=== PATIENT | female | born 1935 | race Caucasian/White ===

== ENCOUNTER 2016-10-29 11:14 | Inpatient (IN) | payer MEDICARE ==
[~2016-10-29] VITALS: Ht 147.3 cm; Wt 58.1 kg
[2016-10-29 11:15] VITALS: BP 140/69; PULSE 74; RESP 16; TEMP 98.4; O2SAT 98
[2016-10-29 11:44] VITALS: O2SAT 97
[2016-10-29] MEDS ORDERED: SODIUM CHLORIDE 0.9% FLUSH 10 ML FLUSH IV FLUSH PRN ×2 (11:45→13:45)
[2016-10-29] MEDS ORDERED: LEVO50TA4 PO (11:49)
[2016-10-29] MEDS ORDERED: DIOV160T6 PO (11:49)
[2016-10-29] MEDS ORDERED: ROSU10 PO (11:49)
[2016-10-29] MEDS ORDERED: CARV3.12 PO (11:49)
[2016-10-29 12:05] LABS: BASOPHIL # 0.1 TH/MM3 (0-0.2); BASOPHIL % 0.8 % (0.0-2.0); EOSINOPHIL # 0.1 TH/MM3 (0-0.4); EOSINOPHIL % 0.9 % (0.0-4.0); HEMATOCRIT 40.8 % (35.0-46.0); HEMO FLAGS DIFF FINAL; LYMPH % 15.2 % (9.0-44.0); LYMPHOCYTE # 1.2 TH/MM3 (1.0-4.8); MEAN CELL VOLUME 81.2 FL (80.0-100.0); MEAN CORPUSCULAR HEMOGLOBIN 26.6 PG (27.0-34.0); MEAN CORPUSCULAR HGB CONC 32.8 % (32.0-36.0); MONO % 7.5 % (0.0-8.0); NEUT % 75.6 % (16.0-70.0); PLATELET COUNT 572 TH/MM3 (150-450); RED BLOOD COUNT 5.03 MIL/MM3 (4.00-5.30); RED CELL DISTRIBUTION WIDTH 15.2 % (11.6-17.2); WHITE BLOOD COUNT 7.9 TH/MM3 (4.0-11.0)
[2016-10-29] MEDS ORDERED: ONDANSETRON HCL 4 MG/2 ML VIAL IV PUSH ONE (12:15)
[2016-10-29] MEDS ORDERED: PROPOFOL 200 MG/20 ML AMP IV ONE (12:15)
[2016-10-29] MEDS ORDERED: PHENYLEPH/NS 1000 MCG/10 ML SYR IV ONE (12:15)
[2016-10-29] MEDS ORDERED: ePHEDrine/NS 25 MG/5 ML SYR IV ONE (12:15)
[2016-10-29] MEDS ORDERED: NORMOSOL R INJ 2,000 ML IV ONE (12:15)
[2016-10-29] MEDS ORDERED: MORPHINE SULFATE 4 MG/ML INJ IV ONE (12:15)
[2016-10-29 12:17] LABS: APTT (PATIENT) 26.4 SEC (24.3-30.1); INTERNATIONAL NORMALIZED RATIO 1.1 RATIO; PROTHROMBIN TIME - PATIENT 12.7 SEC (9.8-11.6)
[2016-10-29] MEDS ORDERED: ACETAMINOPHEN 1000 MG/100 ML VIAL IV ONE (12:18)
[2016-10-29 12:23] LABS: ALKALINE PHOSPHATASE 97 U/L (45-117); TOTAL BILIRUBIN ADULT 0.3 MG/DL (0.2-1.0)
[2016-10-29 12:29] LABS: ALT (GPT) 15 U/L (10-53); ANION GAP 9 MEQ/L (5-15); AST (GOT) 36 U/L (15-37); BICARBONATE 30.2 MEQ/L (21.0-32.0); BLOOD UREA NITROGEN 6 MG/DL (7-18); CHLORIDE 94 MEQ/L (98-107); GLOMERULAR FILTRATION RATE 59 ML/MIN (>89); POTASSIUM 3.7 MEQ/L (3.5-5.1); SODIUM (NA) 133 MEQ/L (136-145)
[2016-10-29] MEDS ORDERED: metroNIDAZOLE 500 MG INJ 100 ML IV ONE ×2 (13:00→19:30)
[2016-10-29] MEDS ORDERED: SODIUM CHLOR 0.9% 1000 ML INJ 1,000 ML IV SCH ×2 (13:00→13:39)
[2016-10-29] MEDS ORDERED: CIPROFLOXACIN 400 MG PREMIX 200 ML IV ONE (13:00)
[2016-10-29] MEDS ORDERED: RESP: LIDOCAINE HCL 4% PF 5 ML NEB NEB ONE (13:00)
--- NOTE | 2016-10-29 13:38 | PD.CONS ---
cc: Can Brown MD [facility] Service General Surgery Consult Requested By Dr. Moseley Reason for Consult Obstructing colon mass Primary Care Physician Non-Staff History of Present Illness This is an 80 year female with a past medical history of breast cancer, CAD, hypertension and hypothyroidism. The patient started having LLQ pain about 8- 10 days ago and attempted to make any appointment with her PCP. There was a delay in her appointment due to a change in her PCP. She researched online and found that LLQ pain can be a symptom of diverticulitis. She started just drinking clear liquids and noticed a resolution of the LLQ pain. She had an appointment with her PCP and an outpatient CT scan of the abdomen and pelvis was ordered. The CT was completed today at [facility]. The Radiologist sent the patient over to [facility] due to findings of an obstructive colon mass. The patient has never had an EGD or colonoscopy before. A General Surgery consultation has been requested for a surgical evaluation of obstructing colon mass. Review of Systems Constitutional: COMPLAINS OF: Change in appetite, DENIES: Fatigue, Weight loss Endocrine: DENIES: Polydipsia, Polyuria, Polyphagia Eyes: DENIES: Diplopia Ears, nose, mouth, throat: DENIES: Hearing loss Respiratory: DENIES: Cough Cardiovascular: DENIES: Chest pain Gastrointestinal: COMPLAINS OF: Abdominal pain (LLQ ), Diarrhea, DENIES: Nausea , Vomiting Genitourinary: DENIES: Urinary incontinence Musculoskeletal: DENIES: Joint pain Integumentary: DENIES: Abnormal pigmentation Hematologic/lymphatic: DENIES: Bruising Immunologic/allergic: DENIES: Eczema Neurologic: DENIES: Headache, Localized weakness Psychiatric: DENIES: Mood changes, Depression Past Family Social History Past Medical History Breast cancer CAD Hypertension Hypothyroidism Past Surgical History C section x2 CABG (5 vessels) Mastectomy Reported Medications Crestor Coreg Diovan Synthroid Allergies: Coded Allergies: Penicillins (Verified Allergy, Severe, SWELLING, 10/29/16) latex (Verified Allergy, Severe, Rash, 10/29/16) Active Ordered Medications Current Medications Medications (Trade) Dose Ordered Sig/Yue Route Start Time Stop Time Status Last Admin (NS Flush) 2 ml UNSCH PRN IV FLUSH 10/29/16 11:45 Ciprofloxacin/ Dextrose 200 ml @ 200 mls/hr ONCE ONCE IV 10/29/16 13:00 10/29/16 13:59 Metronidazole 100 ml @ 100 mls/hr ONCE ONCE IV 10/29/16 13:00 10/29/16 13:59 10/29/16 13:05 Sodium Chloride 1,000 ml @ 999 mls/hr Q1H1M IV 10/29/16 13:00 10/29/16 14:00 10/29/16 13:06 Family History No known family history of cancer Social History Denies tobacco use Denies ETOH use Denies illicit drug use Lives at home with . Physical Exam Vital Signs Vital Signs Date Time Temp Pulse Resp B/P (MAP) Pulse Ox O2 Delivery O2 Flow Rate FiO2 10/29/16 11:44 97 Room Air 10/29/16 11:15 98.4 74 16 140/69 (92) 98 Physical Exam GENERAL: 80 year old female resting in bed in no acute distress. SKIN: Warm and dry. HEAD: Atraumatic. Normocephalic. EYES: Pupils equal and round. No scleral icterus. No injection or drainage. ENT: No nasal bleeding or discharge. Mucous membranes pink and moist. NECK: Trachea midline. CARDIOVASCULAR: Regular rate and rhythm. RESPIRATORY: No accessory muscle use. Clear to auscultation. Breath sounds equal bilaterally. GASTROINTESTINAL: Abdomen soft, minimally distended; tenderness with deep palpation in LLQ. Well healed midline incision. No palpable hernias. MUSCULOSKELETAL: Extremities without clubbing, cyanosis, or edema. No obvious deformities. NEUROLOGICAL: Awake and alert. No obvious cranial nerve deficits. Motor grossly within normal limits. Five out of 5 muscle strength in the arms and legs. Normal speech. PSYCHIATRIC: Appropriate mood and affect; insight and judgment normal. Laboratory Laboratory Tests Test 10/29/16 11:55 White Blood Count 7.9 Red Blood Count 5.03 Hemoglobin 13.4 Hematocrit 40.8 Mean Corpuscular Volume 81.2 Mean Corpuscular Hemoglobin 26.6 Mean Corpuscular Hemoglobin Concent 32.8 Red Cell Distribution Width 15.2 Platelet Count 572 Mean Platelet Volume 7.6 Neutrophils (%) (Auto) 75.6 Lymphocytes (%) (Auto) 15.2 Monocytes (%) (Auto) 7.5 Eosinophils (%) (Auto) 0.9 Basophils (%) (Auto) 0.8 Neutrophils # (Auto) 6.0 Lymphocytes # (Auto) 1.2 Monocytes # (Auto) 0.6 Eosinophils # (Auto) 0.1 Basophils # (Auto) 0.1 CBC Comment DIFF FINAL Differential Comment Prothrombin Time 12.7 Prothromb Time International Ratio 1.1 Activated Partial Thromboplast Time 26.4 Blood Urea Nitrogen 6 Creatinine 0.92 Random Glucose 116 Total Protein 7.8 Albumin 2.9 Calcium Level 8.9 Alkaline Phosphatase 97 Aspartate Amino Transf (AST/SGOT) 36 Alanine Aminotransferase (ALT/SGPT) 15 Total Bilirubin 0.3 Sodium Level 133 Potassium Level 3.7 Chloride Level 94 Carbon Dioxide Level 30.2 Anion Gap 9 Estimat Glomerular Filtration Rate 59 Lactic Acid Level 1.8 Result Diagram: 10/29/16 1155 10/29/[address] abd/pelvis shows sigmoid region mass with contained perforation Assessment and Plan Assessment and Plan 80 year old female with obstructing sigmoid mass -NPO -OR this evening for exploratory laparotomy, resection of mass and possible colostomy placement with Dr. Brown -Obtain consents -Cardiology consult for surgical clearance -Plan discussed with Mrs. Tee and ([phone]) -Thank you for this consult; We will continue to follow Attending Note - Dr. Brown Abdomen soft, nontender, mass palpable LLQ, possibly metastatic process in liver. Discussed with Dr. Carvajal - he will place ureteral stent to prevent progression of obstructive symptoms and possibly facilitate any chemotherapy needed, in case disease progresses while on therapy Discussed with patient and ; they are aware of risks, benefits, alternatives and consequences. As she has been slowly deteriorating over the past two weeks (according to ) and presents with a perforation, will go to OR for resection/drainage and diversion for definitive treatment. The exam, history, and the medical decision-making described in the above note were completed with the assistance of the mid-level provider. I reviewed and agree with the findings presented. I attest that I had a [id number] encounter with the patient on the same day, and personally performed and documented my assessment and findings in the medical record. Discussed Condition With Dr. Kevin Yanes. and Bridgett Fields Oct 29, 2016 13:38 Can Brown MD Oct 29, 2016 17:25
[2016-10-29] MEDS ORDERED: LACTULOSE SYRUP 20 GM/30 ML CUP PO PRN (13:45)
[2016-10-29] MEDS ORDERED: NALOXONE HCL 0.4 MG/ML AMP IV PRN ×2 (13:45→20:30)
[2016-10-29] MEDS ORDERED: SENNOSIDES 8.6 MG TAB PO PRN (13:45)
[2016-10-29] MEDS ORDERED: BISACODYL 10 MG SUPP RECTAL PRN (13:45)
[2016-10-29] MEDS ORDERED: MAGNESIUM HYDROXIDE SUSP 30 ML CUP PO PRN (13:45)
[2016-10-29] MEDS ORDERED: ONDANSETRON HCL 4 MG/2 ML VIAL IVP PRN (13:45)
[2016-10-29 14:00] VITALS: BP 134/64; PULSE 55; RESP 16; O2SAT 99
--- NOTE | 2016-10-29 14:28 | PD ---
HPI Chief Complaint: Abdominal Pain Time Seen by Provider: 11:42 Travel History International Travel<30 days: No Contact w/Intl Traveler<30days: No Traveled to known affect area: No History of Present Illness HPI This is an 80-year-old female who presents to the emergency department having had 2 weeks of left lower quadrant abdominal pain for which she's been seeing her primary care physician. She says the pain is worse when she walks and improved with rest. Her doctor initially thought she diverticulitis so she was placed on a clear liquid diet and started on Cipro and Flagyl. She had difficulty tolerating the antibiotics. Ultimately the pain resolved 3 days ago. Her doctor had ordered a CT scan which she went for today. The CT demonstrated a sigmoid mass with a contained perforation so she was sent emergently to the emergency department. She denies any fevers, chills, nausea or vomiting. She has had loose stools. PFSH Past Medical History Coronary Artery Disease: Yes Myocardial Infarction: Yes Past Surgical History AICD: Yes (ST [facility]AL[facility]) Section: Yes (X2) Coronary Artery Bypass Graft: Yes Pacemaker: Yes Social History Alcohol Use: Yes (RARE OCCASION) Tobacco Use: No Substance Use: No Allergies-Medications (Allergen,Severity, Reaction): Coded Allergies: Penicillins (Verified Allergy, Severe, SWELLING, 10/29/16) latex (Verified Allergy, Severe, Rash, 10/29/16) Reported Meds & Prescriptions Reported Meds & Active Scripts Active Reported Levothyroxine (Levothyroxine Sodium) 50 Mcg Tab 50 Mcg PO DAILY Diovan (Valsartan) 160 Mg Tab 160 Mg PO DAILY Carvedilol 3.125 Mg Tab 3.125 Mg PO BID Crestor (Rosuvastatin Calcium) 10 Mg Tab 10 Mg PO DAILY Review of Systems Except as stated in HPI: all other systems reviewed are Neg Physical Exam Narrative GENERAL: Thin frail elderly female in no acute distress SKIN: Focused skin assessment warm and dry. HEAD: Atraumatic. Normocephalic. EYES: Pupils equal and round. No injection or drainage. ENT: Dry mucous membranes. NECK: Trachea midline. CARDIOVASCULAR: Regular rate and rhythm. No murmur appreciated. RESPIRATORY: Clear to auscultation. Breath sounds equal bilaterally. GASTROINTESTINAL: Abdomen soft, firm mass in the left lower quadrant with no associated tenderness, rebound or guarding. MUSCULOSKELETAL: No obvious deformities. NEUROLOGICAL: Awake and alert. No obvious cranial nerve deficits. Moving all extremities. PSYCHIATRIC: Appropriate mood and affect; insight and judgment normal. Data Data Last Documented VS Vital Signs Date Time Temp Pulse Resp B/P (MAP) Pulse Ox O2 Delivery O2 Flow Rate FiO2 10/29/16 11:44 97 Room Air 10/29/16 11:15 98.4 74 16 Orders Orders Complete Blood Count With Diff (10/29/16 11:42) Comprehensive Metabolic Panel (10/29/16 11:42) Lactic Acid (10/29/16 11:42) Prothrombin Time / Inr (Pt) (10/29/16 11:42) Act Partial Throm Time (Ptt) (10/29/16 11:42) Iv Access Insert/Monitor (10/29/16 11:42) Ecg Monitoring (10/29/16 11:42) Oximetry (10/29/16 11:42) Sodium Chloride 0.9% Flush (Ns Flush) (10/29/16 11:45) Type And Screen (10/29/16 11:42) Electrocardiogram (10/29/16 11:41) Ciprofloxacin 400 Mg Premix (Cipro 400 M (10/29/16 13:00) Metronidazole 500 Mg Inj (Flagyl 500 Mg (10/29/16 13:00) Sodium Chlor 0.9% 1000 Ml Inj (Ns 1000 M (10/29/16 13:00) Lidocaine Pf 4% Neb (Lidocaine Pf 4% Neb (10/29/16 13:00) Ng Gastric Tube Insert/Monitor (10/29/16 12:59) Consult Mark Nfs (10/29/16 ) Diet Npo (10/29/16 Lunch) Admit Order (Ed Use Only) (10/29/16 13:38) Consult Cardiology (10/29/16 ) Labs Laboratory Tests Test 10/29/16 11:55 White Blood Count 7.9 TH/MM3 Red Blood Count 5.03 MIL/MM3 Hemoglobin 13.4 GM/DL Hematocrit 40.8 % Mean Corpuscular Volume 81.2 FL Mean Corpuscular Hemoglobin 26.6 PG Mean Corpuscular Hemoglobin Concent 32.8 % Red Cell Distribution Width 15.2 % Platelet Count 572 TH/MM3 Mean Platelet Volume 7.6 FL Neutrophils (%) (Auto) 75.6 % Lymphocytes (%) (Auto) 15.2 % Monocytes (%) (Auto) 7.5 % Eosinophils (%) (Auto) 0.9 % Basophils (%) (Auto) 0.8 % Neutrophils # (Auto) 6.0 TH/MM3 Lymphocytes # (Auto) 1.2 TH/MM3 Monocytes # (Auto) 0.6 TH/MM3 Eosinophils # (Auto) 0.1 TH/MM3 Basophils # (Auto) 0.1 TH/MM3 CBC Comment DIFF FINAL Differential Comment Prothrombin Time 12.7 SEC Prothromb Time International Ratio 1.1 RATIO Activated Partial Thromboplast Time 26.4 SEC Blood Urea Nitrogen 6 MG/DL Creatinine 0.92 MG/DL Random Glucose 116 MG/DL Total Protein 7.8 GM/DL Albumin 2.9 GM/DL Calcium Level 8.9 MG/DL Alkaline Phosphatase 97 U/L Aspartate Amino Transf (AST/SGOT) 36 U/L Alanine Aminotransferase (ALT/SGPT) 15 U/L Total Bilirubin 0.3 MG/DL Sodium Level 133 MEQ/L Potassium Level 3.7 MEQ/L Chloride Level 94 MEQ/L Carbon Dioxide Level 30.2 MEQ/L Anion Gap 9 MEQ/L Estimat Glomerular Filtration Rate 59 ML/MIN Lactic Acid Level 1.8 mmol/L MDM Medical Decision Making Medical Screen Exam Complete: Yes Emergency Medical Condition: Yes Interpretation(s) Afebrile, no tachycardia, normotensive No leukocytosis Mild hyponatremia Lactic acid is 1.[address] [place] demonstrates a sigmoid mass in the left lower quadrant with associated contained perforation and no surrounding abscess Differential Diagnosis Diverticulitis, colon cancer, perforated diverticulitis, abscess, sepsis Narrative Course This is an 80-year-old female who presents to the emergency department with left lower quadrant abdominal pain that's been present for [address] demonstrates a sigmoid mass with contained perforation. Here she appears well, is pain-free has normal vital signs. Labs are obtained which are reassuring. I spoke to radiology multiple times regarding imaging findings. I spoke to Dr. Brown who requested an NG tube be placed, the patient be given a dose of antibiotics, and admitted for surgical intervention later today. I spoke to Dr. Pike who will admit the patient to the medical service given the patient's history of coronary artery disease. Physician Communication Physician Communication Discussed with dr. brown, Dr. Mayorga and Dr. Kerns Diagnosis Primary Impression: Colonic mass Additional Impression: Perforation bowel Admitting Information Admitting Physician Requests: Admit Betzy Moseley MD Oct 29, 2016 14:28
--- NOTE | 2016-10-29 15:11 | HHI.PR ---
Objective Vitals Vital Signs Date Time Temp Pulse Resp B/P (MAP) Pulse Ox O2 Delivery O2 Flow Rate FiO2 10/29/16 14:00 55 16 134/64 (87) 99 Room Air 10/29/16 11:44 97 Room Air 10/29/16 11:15 98.4 74 16 140/69 (92) 98 I/O 10/28/16 10/28/16 10/28/16 10/29/16 10/29/16 10/29/16 07:00 15:00 23:00 07:00 15:00 23:00 Intake Total 1100 ml Balance 1100 ml Intake IV Total 1100 ml Result Diagram: 10/29/16 1155 10/29/16 1155 Rosio Kerns MD Oct 29, 2016 15:11
--- NOTE | 2016-10-29 15:22 | HHI.HP ---
[facility]Staff Admission Diagnosis sigmoid mass with perforation Diagnoses: Travel History International Travel<30 Days: No Contact w/Intl Traveler <30 Da: No Traveled to Known Affected Are: No History of Present Illness Patient is an 80-year-old female with past medical history of breast cancer, CAD status post bypass surgery, hyperlipidemia and hyper thyroidism came from [place] upon the request of the radiologist. She tells me that about 2-4 weeks ago, she was experiencing left lower quadrant pain which she rates about a 3 out of 10 whenever she would move around. She states that the pain was "there all the time". Because of this pain she started taking a liquid diet and apparently that helped with the pain. During that time her primary care doctor retired and she was in the process of getting a new primary care doctor. She did see him and he ordered a CT scan. She went to her appointment today to get the CT scan and radiologist referred her to [facility]. Prior to coming here, patient was prescribed antibiotics. She took them for one day however she had nausea due to the antibiotics and stopped taking her medication. She also admits to diarrhea for a couple of days, nonbloody. She states that her primary care doctor did check for blood in her stools and did not find any. She denies any prior history of colonoscopies. Currently she has no pain. She denies any fevers or chills. Currently she is not nauseous. She states she is scheduled for surgery later today and apparently she was told that she would be going to the intensive care unit for monitoring for a day or so. Patient has no other complaints at this time. Review of Systems Except as stated in HPI: all other systems reviewed are Neg Past Family Social History Past Medical History Breast cancer, hyperthyroidism, CAD with bypass surgery, hyperlipidemia Of note, patient tells me that she did not continue her chemotherapy for her breast cancer and stopped it as she could not tolerated it due to extreme weakness. Her oncologist is in [facility]. Past Surgical History 2 C-sections, left mastectomy, bypass surgery Reported Medications Reported Meds & Active Scripts Active Reported Levothyroxine (Levothyroxine Sodium) 50 Mcg Tab 50 Mcg PO DAILY Diovan (Valsartan) 160 Mg Tab 160 Mg PO DAILY Carvedilol 3.125 Mg Tab 3.125 Mg PO BID Crestor (Rosuvastatin Calcium) 10 Mg Tab 10 Mg PO DAILY Allergies: Coded Allergies: Penicillins (Verified Allergy, Severe, SWELLING, 10/29/16) latex (Verified Allergy, Severe, Rash, 10/29/16) Family History Father had heart problems and mother was late stage diabetes Social History Denies any smoking history or illegal drug use. Rarely drinks alcohol Physical Exam Vital Signs Vital Signs Date Time Temp Pulse Resp B/P (MAP) Pulse Ox O2 Delivery O2 Flow Rate FiO2 10/29/16 14:00 55 16 134/64 (87) 99 Room Air 10/29/16 11:44 97 Room Air 10/29/16 11:15 98.4 74 16 140/69 (92) 98 Physical Exam GENERAL: Thin elderly female sitting up in bed with NG tube in place. SKIN: No rashes, ecchymoses or lesions. Cool and dry. HEAD: Atraumatic. Normocephalic. No temporal or scalp tenderness. EYES: Pupils equal round and reactive. Extraocular motions intact. No scleral icterus. No injection or drainage. ENT: Nose without drainage. Throat without erythema, tonsillar hypertrophy or exudate. Uvula midline. Airway patent. NECK: Trachea midline. No JVD or lymphadenopathy. Supple, nontender, no meningeal signs. CARDIOVASCULAR: Regular rate and rhythm without murmurs. RESPIRATORY: Clear to auscultation. Breath sounds equal bilaterally. No wheezes GASTROINTESTINAL: Abdomen soft, mass palpated in the left lower quadrant, nontender. Bowel sounds present. No guarding. MUSCULOSKELETAL: Extremities without edema. No calf tenderness. Negative Homans sign bilaterally. NEUROLOGICAL: Awake and alert. Cranial nerves II through XII intact. Motor and sensory grossly within normal limits. Five out of 5 muscle strength in all muscle groups. Normal speech. Laboratory Laboratory Tests Test 10/29/16 11:55 White Blood Count 7.9 Red Blood Count 5.03 Hemoglobin 13.4 Hematocrit 40.8 Mean Corpuscular Volume 81.2 Mean Corpuscular Hemoglobin 26.6 Mean Corpuscular Hemoglobin Concent 32.8 Red Cell Distribution Width 15.2 Platelet Count 572 Mean Platelet Volume 7.6 Neutrophils (%) (Auto) 75.6 Lymphocytes (%) (Auto) 15.2 Monocytes (%) (Auto) 7.5 Eosinophils (%) (Auto) 0.9 Basophils (%) (Auto) 0.8 Neutrophils # (Auto) 6.0 Lymphocytes # (Auto) 1.2 Monocytes # (Auto) 0.6 Eosinophils # (Auto) 0.1 Basophils # (Auto) 0.1 CBC Comment DIFF FINAL Differential Comment Prothrombin Time 12.7 Prothromb Time International Ratio 1.1 Activated Partial Thromboplast Time 26.4 Blood Urea Nitrogen 6 Creatinine 0.92 Random Glucose 116 Total Protein 7.8 Albumin 2.9 Calcium Level 8.9 Alkaline Phosphatase 97 Aspartate Amino Transf (AST/SGOT) 36 Alanine Aminotransferase (ALT/SGPT) 15 Total Bilirubin 0.3 Sodium Level 133 Potassium Level 3.7 Chloride Level 94 Carbon Dioxide Level 30.2 Anion Gap 9 Estimat Glomerular Filtration Rate 59 Lactic Acid Level 1.8 Result Diagram: 10/29/16 1155 10/29/16 1155 Caprini VTE Risk Assessment Caprini VTE Risk Assessment: Mod/High Risk (score >= 2) Caprini Risk Assessment Model Point Value = 1 Point Value = 2 Point Value = 3 Point Value = 5 Age 41-60 Minor surgery BMI > 25 kg/m2 Swollen legs Varicose veins or History of unexplained or recurrent spontaneous Oral contraceptives or hormone replacement Sepsis (< 1 month) Serious lung disease, including pneumonia (< 1 month) Abnormal pulmonary function Acute myocardial infarction Congestive heart failure (< 1 month) History of inflammatory bowel disease Medical patient at bed rest Age 61-74 Arthroscopic surgery Major open surgery (> 45 min) Laparoscopic surgery (> 45 min) Malignancy Confined to bed (> 72 hours) Immobilizing plaster cast Central venous access Age >= 75 History of VTE Family history of VTE Factor V Leiden Prothrombin [id number] Lupus anticoagulant Anticardiolipin antibodies Elevated serum homocysteine Heparin-induced thrombocytopenia Other congenital or acquired thrombophilia Stroke (< 1 month) Elective arthroplasty Hip, pelvis, or leg fracture Acute spinal cord injury (< 1 month) Prophylaxis Regimen Total Risk Factor Score Risk Level Prophylaxis Regimen 0-1 Low Early ambulation 2 Moderate Order ONE of the following: *Sequential Compression Device (SCD) *Heparin 5000 units SQ BID 3-4 Higher Order ONE of the following medications: *Heparin 5000 units SQ TID *Enoxaparin/Lovenox 40 mg SQ daily (WT < 150 kg, CrCl > 30 mL/min) *Enoxaparin/Lovenox 30 mg SQ daily (WT < 150 kg, CrCl > 10-29 mL/min) *Enoxaparin/Lovenox 30 mg SQ BID (WT < 150 kg, CrCl > 30 mL/min) AND/OR *Sequential Compression Device (SCD) 5 or more Highest Order ONE of the following medications: *Heparin 5000 units SQ TID (Preferred with Epidurals) *Enoxaparin/Lovenox 40 mg SQ daily (WT < 150 kg, CrCl > 30 mL/min) *Enoxaparin/Lovenox 30 mg SQ daily (WT < 150 kg, CrCl > 10-29 mL/min) *Enoxaparin/Lovenox 30 mg SQ BID (WT < 150 kg, CrCl > 30 mL/min) AND *Sequential Compression Device (SCD) Assessment and Plan Assessment and Plan Sigmoid mass w contained perforation noted on outpatient CT scan: CT abdomen and pelvis showed an ill-defined mass in the sigmoid region with contained perforation. Questionable metastatic disease to liver. Mild hydronephrosis. General surgery has been consulted. Plan is to take patient to the OR. Patient tells me that she is active, plays golf on a regular basis, has no shortness of breath with ambulation. She is able to go up and down the stairs with no difficulties. EKG reviewed and shows T wave inversions in lead II, III, V5 and V6 but no ST elevation or depression. Pt denies any chest pains. Pain control , Rehabilitation, antibiotics and DVT prophylaxis per general surgery. Consider consulting medical oncology pending findings in surgery. NG tube in place. Monitor pt for any worsening abdominal pain. Mild hyponatremia: monitor for now. Breast cancer: Status post left mastectomy. Patient admits that she did not finish her course of chemotherapy as she could not tolerate it. Oncologist is in [facility]. hyperthyroidism: Resume home medication CAD with bypass surgery: Resume home medication hyperlipidemia: Resume home medication DVT prophylaxis: Held as patient is scheduled for surgery this afternoon. Nothing by mouth. Code Status Full code Discussed Condition With Patient and ER physician Rosio Kerns MD Oct 29, 2016 15:22
[2016-10-29 16:00] VITALS: BP 145/74; PULSE 70; RESP 18; O2SAT 98
[2016-10-29] MEDS ORDERED: LIDOCAINE HCL 2% JELLY 5 ML SYRINGE ONE (16:52)
--- NOTE | 2016-10-29 17:02 | PD.CONS ---
HPI Service Urology Consult Requested By Primary Care Physician Non-Staff Diagnosis: History of Present Illness 80-year-old female presents with findings of a sigmoid mass on CT scan scheduled undergo exploratory laparotomy with colon resection by Dr. Brown today. Patient was also found to have left-sided hydronephrosis and urology was consult the place left ureteral stent. She presently denies any flank pain or nausea and vomiting. She denies any gross hematuria or history of stones. Review of Systems ROS Limitations: Clinical Condition Constitutional: DENIES: Diaphoretic episodes Endocrine: DENIES: Abnorml menstrual pattern Eyes: DENIES: Blurred vision Ears, nose, mouth, throat: DENIES: Tinnitus Respiratory: DENIES: Apneas Cardiovascular: DENIES: Chest pain Gastrointestinal: COMPLAINS OF: Abdominal pain Genitourinary: DENIES: Abnormal vaginal bleeding Musculoskeletal: DENIES: Joint pain Integumentary: DENIES: Abnormal pigmentation Hematologic/lymphatic: DENIES: Bruising Immunologic/allergic: DENIES: Eczema Neurologic: DENIES: Abnormal gait Psychiatric: DENIES: Anxiety Past Family Social History Past Medical History CAD Hyperlipidema Breast cancer Past Surgical History CABG Left mastectomy 2 Allergies: Coded Allergies: Penicillins (Verified Allergy, Severe, SWELLING, 10/29/16) latex (Verified Allergy, Severe, Rash, 10/29/16) Family History Diabetes and heart disease Social History Denies drug use, smoking, social EtOH usage is noted Physical Exam Vital Signs Date Time Temp Pulse Resp B/P (MAP) Pulse Ox O2 Delivery O2 Flow Rate FiO2 10/29/16 16:00 70 18 145/74 (97) 98 10/29/16 15:45 10/29/16 14:00 55 16 134/64 (87) 99 Room Air 10/29/16 11:44 97 Room Air 10/29/16 11:15 98.4 74 16 140/69 (92) 98 Physical Exam GENERAL: This is a well-nourished, well-developed patient, in no apparent distress. SKIN: No rashes, ecchymoses or lesions. Cool and dry. HEAD: Atraumatic. Normocephalic. No temporal or scalp tenderness. EYES: Pupils equal round and reactive. Extraocular motions intact. No scleral icterus. No injection or drainage. ENT: Nose without bleeding, purulent drainage or septal hematoma. Throat without erythema, tonsillar hypertrophy or exudate. Uvula midline. Airway patent. NECK: Trachea midline. No JVD or lymphadenopathy. Supple, nontender, no meningeal signs. CARDIOVASCULAR: Regular rate and rhythm without murmurs, gallops, or rubs. RESPIRATORY: Clear to auscultation. Breath sounds equal bilaterally. No wheezes , rales, or rhonchi. GASTROINTESTINAL: Abdomen soft, non-tender, nondistended. No hepato-splenomegaly , or palpable masses. No guarding. GENITOURINARY: Normal female external genitalia MUSCULOSKELETAL: Extremities without clubbing, cyanosis, or edema. No joint tenderness, effusion, or edema noted. No calf tenderness. Negative Homans sign bilaterally. NEUROLOGICAL: Awake and alert. Cranial nerves II through XII intact. Motor and sensory grossly within normal limits. Five out of 5 muscle strength in all muscle groups. Normal speech. Laboratory Tests Test 10/29/16 11:55 White Blood Count 7.9 Red Blood Count 5.03 Hemoglobin 13.4 Hematocrit 40.8 Mean Corpuscular Volume 81.2 Mean Corpuscular Hemoglobin 26.6 Mean Corpuscular Hemoglobin Concent 32.8 Red Cell Distribution Width 15.2 Platelet Count 572 Mean Platelet Volume 7.6 Neutrophils (%) (Auto) 75.6 Lymphocytes (%) (Auto) 15.2 Monocytes (%) (Auto) 7.5 Eosinophils (%) (Auto) 0.9 Basophils (%) (Auto) 0.8 Neutrophils # (Auto) 6.0 Lymphocytes # (Auto) 1.2 Monocytes # (Auto) 0.6 Eosinophils # (Auto) 0.1 Basophils # (Auto) 0.1 CBC Comment DIFF FINAL Differential Comment Prothrombin Time 12.7 Prothromb Time International Ratio 1.1 Activated Partial Thromboplast Time 26.4 Blood Urea Nitrogen 6 Creatinine 0.92 Random Glucose 116 Total Protein 7.8 Albumin 2.9 Calcium Level 8.9 Alkaline Phosphatase 97 Aspartate Amino Transf (AST/SGOT) 36 Alanine Aminotransferase (ALT/SGPT) 15 Total Bilirubin 0.3 Sodium Level 133 Potassium Level 3.7 Chloride Level 94 Carbon Dioxide Level 30.2 Anion Gap 9 Estimat Glomerular Filtration Rate 59 Lactic Acid Level 1.8 Result Diagram: 10/29/16 1155 10/29/16 1155 Assessment and Plan Assessment and Plan 80-year-old female with left-sided colon mass scheduled undergo resection today. We'll schedule cystoscopy with left ureteral stent insertion to allow for decompression of hydronephrosis. After the surgery was completed, she'll follow-up in the office to undergo stent removal. Derek Carvajal DO Oct 29, 2016 17:02
[2016-10-29] MEDS ORDERED: FAMOTIDINE 20 MG/2 ML VIAL ONE (17:06)
--- NOTE | 2016-10-29 17:49 | PD.OP ---
Operative Report Date of Surgery: Oct 29, 2016 Preoperative Diagnosis: With hydronephrosis with sigmoid colon mass Postoperative Diagnosis: Same Procedure: Cystoscopy with left retrograde study left double-J stent insertion Anesthesia: MERCEDEZA Surgeon: Derek Carvajal Plant Hr Manager(s): None Resident Surgeon: None Operation and Findings: 80-year-old female presented today for CT scan demonstrating a left descending colon/sigmoid colon mass with left hydronephrosis. Request for made for left ureteral stent as she was scheduled undergo support to her laparotomy today by Dr. Brown. Risk and benefits were discussed preoperatively with the patient she was willing to proceed. Patient is brought to operating room identified by myself as Anai Tee. She is placed in dorsal lithotomy position, prepped and draped in usual sterile fashion, received preprocedure antibiotics and general endotracheal tube anesthesia was administered. Weight 2 Kuwaiti the scope was inserted in the bladder delgadillo cystoscopy did not reveal any abnormalities. Left ureteral orifice was identified and a 5 Kuwaiti opening catheter was inserted into the left ureteral orifice and retrograde study was performed. Marked hydronephrosis with hydroureter was identified on the left side. A 0.3 sensor wire was then passed up into the collecting system of the kidney and the open ended catheter was then removed. A 20 cm 6 Kuwaiti left double-J stent was placed in good position and a 16 Kuwaiti Mena catheter was inserted in the bladder. She tolerated the procedure well. She'll need a follow-up in the office as an outpatient and have her stent removed at that time. Derek Carvajal DO Oct 29, 2016 17:49
[2016-10-29] MEDS ORDERED: SUGAMMADEX SODIUM 200 MG/2 ML VIAL IV PUSH ONE ×2 (19:29)
[2016-10-29] MEDS ORDERED: DO NOT ADM ANY ANTICOAGULANT DRUGS PRN (19:55)
[2016-10-29 20:00] VITALS: BP 106/55; PULSE 62; RESP 18; TEMP 99.5; O2SAT 95
[2016-10-29] MEDS: LACTATED RINGER'S 1000 ML INJ 1,000 ML IV SCH (20:24)
--- NOTE | 2016-10-29 20:24 | HHI.PR ---
cc: Can Brown MD Immediate Post Op Note Procedure Date: Oct 29, 2016 Pre Op Diagnosis: descending colon mass with perforation Post Op Diagnosis: Same Liver metastases Surgeon: Can Brown Surgical Assistant Certified(s): Tova Cedillo CSA Procedure: Placement ureteral stent (Dr. Carvajal) Exp Laparotomy Mobilization splenic flexure of colon Resection distal transverse and descending colon Saran-cut liver biopsy x 2 End colostomy Findings: Tumor involving distal transverse and descending colon At least three hepatic lesions extremely suspicious for metastatic disease Complications: None Specimen(s) removed: Distal transverse and descending colon to pathology [place] liver specimens medial segment left lobe liver to pathology Estimated blood loss: 250 ml Anesthesia: General Drains: AN IVF (2500 ml) Patient to: PACU Patient Condition: Good Date/Time of Procedure: SEE SURGICAL CARE RECORD Can Brown MD Oct 29, 2016 20:24
[2016-10-29] MEDS ORDERED: MORPHINE SULFATE 4 MG/ML INJ ONE ×3 (20:29→20:54)
[2016-10-29] MEDS ORDERED: MORPHINE SULFATE 30 MG/30 ML PCA IV SCH (20:30)
[2016-10-29] MEDS ORDERED: ONDANSETRON HCL 4 MG/2 ML VIAL IV PRN (20:30)
[2016-10-29] MEDS ORDERED: diphenhydrAMINE HCL 50 MG/ML VIAL IVP PRN (20:30)
[2016-10-29] MEDS ORDERED: Post-op Orders (for Pharmacy) MISC XX ONE (20:30)
[2016-10-29] MEDS ORDERED: SODIUM CHLORIDE 0.9% FLUSH 5 ML FLUSH IVF PRN (20:30)
[2016-10-29] MEDS: DOCUSATE SODIUM 50 MG/SENNA 8.6 MG TAB PO SCH (21:00)
[2016-10-29] MEDS ORDERED: SODIUM CHLORIDE 0.9% FLUSH 10 ML FLUSH IV FLUSH SCH (21:00)
[2016-10-29] MEDS: SODIUM CHLORIDE 0.9% FLUSH 5 ML FLUSH IVF SCH (21:00)
[2016-10-29] MEDS: metroNIDAZOLE 500 MG INJ 100 ML IV SCH (21:00)
[2016-10-29] MEDS ORDERED: HYDROmorphone HCL PF 1 MG/ML VIAL ONE (21:15)
[2016-10-29 22:00] VITALS: BP 102/58; PULSE 76; RESP 14; TEMP 96.3; O2SAT 98
[2016-10-29] MEDS: CIPROFLOXACIN 400 MG PREMIX 200 ML IV SCH (22:00)
[2016-10-29 23:03] LABS: AUTOMATED NEUTROPHIL # 18.2 TH/MM3 (1.8-7.7); BASOPHIL # 0.1 TH/MM3 (0-0.2); BASOPHIL % 0.3 % (0.0-2.0); HEMATOCRIT 38.8 % (35.0-46.0); HEMO FLAGS DIFF FINAL; LYMPH % 4.6 % (9.0-44.0); LYMPHOCYTE # 0.9 TH/MM3 (1.0-4.8); MEAN CELL VOLUME 82.1 FL (80.0-100.0); MEAN CORPUSCULAR HEMOGLOBIN 26.8 PG (27.0-34.0); MEAN CORPUSCULAR HGB CONC 32.6 % (32.0-36.0); MONO % 3.7 % (0.0-8.0); NEUT % 91.4 % (16.0-70.0); PLATELET COUNT 491 TH/MM3 (150-450); RED BLOOD COUNT 4.72 MIL/MM3 (4.00-5.30); RED CELL DISTRIBUTION WIDTH 15.2 % (11.6-17.2); WHITE BLOOD COUNT 19.9 TH/MM3 (4.0-11.0)
[2016-10-29 23:37] LABS: BICARBONATE 25.3 MEQ/L (21.0-32.0)
[2016-10-30] VITALS (12 sets, daily range): BP systolic 91–139; BP diastolic 54–63; PULSE 63–89; RESP 11–23; TEMP 96–97.9; O2SAT 95–99
[2016-10-30] MEDS: metroNIDAZOLE 500 MG INJ 100 ML IV SCH ×3 (04:35→20:40)
[2016-10-30 05:42] LABS: AUTOMATED NEUTROPHIL # 21.8 TH/MM3 (1.8-7.7); BASOPHIL % 0.2 % (0.0-2.0); HEMATOCRIT 38.3 % (35.0-46.0); HEMO FLAGS DIFF FINAL; LYMPH % 2.8 % (9.0-44.0); LYMPHOCYTE # 0.7 TH/MM3 (1.0-4.8); MEAN CELL VOLUME 82.3 FL (80.0-100.0); MEAN CORPUSCULAR HEMOGLOBIN 25.9 PG (27.0-34.0); MEAN CORPUSCULAR HGB CONC 31.4 % (32.0-36.0); MONO % 2.7 % (0.0-8.0); NEUT % 94.3 % (16.0-70.0); PLATELET COUNT 494 TH/MM3 (150-450); RED BLOOD COUNT 4.66 MIL/MM3 (4.00-5.30); RED CELL DISTRIBUTION WIDTH 15.6 % (11.6-17.2); WHITE BLOOD COUNT 23.2 TH/MM3 (4.0-11.0)
[2016-10-30 06:07] LABS: BICARBONATE 24.4 MEQ/L (21.0-32.0); POTASSIUM 4.1 MEQ/L (3.5-5.1)
[2016-10-30] MEDS: PCA - TOTAL MG MORPHINE DELIVERED PER SHIFT SCH ×3 (06:28→20:41)
[2016-10-30] MEDS: LACTATED RINGER'S 1000 ML INJ 1,000 ML IV SCH ×2 (06:51→16:24)
[2016-10-30] MEDS ORDERED: SODIUM CHLORID 0.9% 500 ML INJ 500 ML IV ONE (09:00)
[2016-10-30] MEDS: DOCUSATE SODIUM 50 MG/SENNA 8.6 MG TAB PO SCH ×2 (09:37→20:38)
[2016-10-30] MEDS: SODIUM CHLORIDE 0.9% FLUSH 5 ML FLUSH IVF SCH ×2 (09:37→20:42)
--- NOTE | 2016-10-30 10:47 | MB ---
cc: EDWIN VELAZQUEZ M.D. DATE OF CONSULTATION: 10/29/2016 REASON FOR CONSULTATION Preoperative cardiac clearance. HISTORY OF PRESENT ILLNESS The patient is a very pleasant 80-year-old white female with a history of coronary artery disease, hyperlipidemia, hyperthyroidism, left breast cancer who, presented to the hospital with a left lower quadrant abdominal pain. Further workup has suggested a possible malignancy in the sigmoid region with contained perforation and possible metastatic disease to the liver. She is to undergo abdominal surgery today. The patient states she plays golf twice a week and does yard work at least three days a week without difficulty. She denies any recent chest pain, shortness of breath, dizziness, syncope, near-syncope, palpitations, pedal edema, paroxysmal nocturnal dyspnea. PAST MEDICAL HISTORY 1. Coronary artery disease status post five-vessel bypass surgery February 2011 in [place], [place]. 2. Presumably an ischemic cardiomyopathy, status post AICD implant April 2011. 3. Left breast cancer status post left mastectomy 2011. The patient states her lymph node dissection showed no nodes positive. 4. Hyperlipidemia. 5. Hyperthyroidism. MEDICATIONS Her cardiac medications at home: 1. Valsartan 160 mg daily. 2. Carvedilol 3.125 mg b.i.d. 3. Crestor or 10 mg q.h.s. ALLERGIES PENICILLIN. LATEX. FAMILY HISTORY Noncontributory. SOCIAL HISTORY The patient denies any history of alcohol or tobacco abuse. REVIEW OF SYSTEMS Review of systems as in the history of present illness otherwise negative or noncontributory. She also denies headache, melena, bright red blood per rectum, cough, fevers. PHYSICAL EXAMINATION VITAL SIGNS: On physical examination, blood pressure 134/64 with a pulse of 55, respirations 16. GENERAL: In general, she is a well-developed thin white female in no acute distress. HEAD, EYES, EARS, NOSE, AND THROAT: On HEENT examination jugular venous pressure is normal. Carotid pulses are 2+ bilaterally and without bruits. CHEST: Examination of the chest reveals clear lung watkins. CARDIAC: On cardiac examination she has a regular rhythm and rate without S3-S4 or murmur. ABDOMEN: On abdominal examination aggressive palpation was not pursued. Bowel sounds are present. There is no definite hepatosplenomegaly. EXTREMITIES: Examination of the extremities reveals no clubbing, cyanosis or edema. LABORATORY DATA Laboratory data includes normal CBC, potassium 3.7, BUN 6, creatinine 0.92. EKG. Shows sinus rhythm, inferior infarct age undetermined, poor R-wave progression, consider anterior infarct age undetermined, inferior and lateral T-wave abnormality consider ischemia. IMPRESSION Overall stable cardiac status in this 80-year-old white female with a history of coronary disease status post five-vessel bypass surgery 2011, presumably an ischemic cardiomyopathy status post AICD implant 2011, left breast cancer, hyperlipidemia. I have been asked to see the patient for cardiac clearance prior to abdominal surgery for possible sigmoid colon cancer and placement of a colostomy. The patient does moderate level activity, almost on a daily basis without evidence for angina or recent congestive heart failure. The extent of her ischemic cardiomyopathy is not entirely clear. The patient does not know any recent ejection fraction values. At this point, I do not see any definite preoperative indices which would significantly increase her perioperative cardiovascular morbidity or mortality. RECOMMENDATIONS 1. Resume her cardiac medications as soon as she is able to take oral medications after surgery. 2. The patient is cleared for surgery from a cardiac standpoint. Edwin Velazquez MD [facility]/DT /3:54 PM /10:20 AM
--- NOTE | 2016-10-30 10:50 | HHI.PR ---
Subjective Subjective Notes Resting in bed Tired but pain controlled Objective Vitals/I&O Vital Signs Date Time Temp Pulse Resp B/P (MAP) Pulse Ox O2 Delivery O2 Flow Rate FiO2 10/30/16 08:14 96 Nasal Cannula 1.00 10/30/16 08:00 63 10/30/16 06:28 17 10/30/16 04:00 96.7 114/61 (78) Labs Laboratory Tests Test 10/29/16 11:55 10/29/16 22:27 10/29/16 22:54 10/30/16 05:07 White Blood Count 7.9 19.9 23.2 Red Blood Count 5.03 4.72 4.66 Hemoglobin 13.4 12.7 12.0 Hematocrit 40.8 38.8 38.3 Mean Corpuscular Volume 81.2 82.1 82.3 Mean Corpuscular Hemoglobin 26.6 26.8 25.9 Mean Corpuscular Hemoglobin Concent 32.8 32.6 31.4 Red Cell Distribution Width 15.2 15.2 15.6 Platelet Count 572 491 494 Mean Platelet Volume 7.6 7.6 7.5 Neutrophils (%) (Auto) 75.6 91.4 94.3 Lymphocytes (%) (Auto) 15.2 4.6 2.8 Monocytes (%) (Auto) 7.5 3.7 2.7 Eosinophils (%) (Auto) 0.9 0.0 0.0 Basophils (%) (Auto) 0.8 0.3 0.2 Neutrophils # (Auto) 6.0 18.2 21.8 Lymphocytes # (Auto) 1.2 0.9 0.7 Monocytes # (Auto) 0.6 0.7 0.6 Eosinophils # (Auto) 0.1 0.0 0.0 Basophils # (Auto) 0.1 0.1 0.0 CBC Comment DIFF FINAL DIFF FINAL DIFF FINAL Differential Comment Prothrombin Time 12.7 Prothromb Time International Ratio 1.1 Activated Partial Thromboplast Time 26.4 Blood Urea Nitrogen 6 6 5 Creatinine 0.92 0.66 0.82 Random Glucose 116 132 129 Total Protein 7.8 Albumin 2.9 Calcium Level 8.9 7.7 7.5 Alkaline Phosphatase 97 Aspartate Amino Transf (AST/SGOT) 36 Alanine Aminotransferase (ALT/SGPT) 15 Total Bilirubin 0.3 Sodium Level 133 139 137 Potassium Level 3.7 4.0 4.1 Chloride Level 94 104 104 Carbon Dioxide Level 30.2 25.3 24.4 Anion Gap 9 10 9 Estimat Glomerular Filtration Rate 59 86 67 Lactic Acid Level 1.8 Nasal Screen MRSA (PCR) MRSA NOT DETECTED Date/Time Source Procedure Growth Status 10/29/16 18:08 Fluid Peritoneal Fluid Gram Stain - Final Resulted 10/29/16 18:08 Fluid Peritoneal Fluid Body Fluid Culture Pending Resulted Radiology Outpatient CT abd/pelvis shows sigmoid region mass with contained perforation Cardiovascular: Regular Lungs: Clear Abdomen: Other (midline incision with c/d/i dressing in place; AN with SS drainge; colostomy stoma pink without any output ) Extremities: No edema A/P Assessment and Plan 80 year old female with obstructing colon mass; POD1 Placement ureteral stent ( Dr. Carvajal); Exp Laparotomy; Mobilization splenic flexure of colon; Resection distal transverse and descending colon ; Saran-cut liver biopsy x 2; End colostomy -NGT to LIWS; okay for a few ice chips and sips of water -IVF -Await pathology -Continue AN care -Continue Mena -PT eval and treat -Consult to Colostomy Nurse -Labs in AM -Transfer to 7N Attending Note - Dr. Brown Patient C/O NG tube; states otherwise no pain Urine output adequate overnight AVSS Dressings dry and intact Transfer to floor Stable The exam, history, and the medical decision-making described in the above note were completed with the assistance of the mid-level provider. I reviewed and agree with the findings presented. I attest that I had a [id number] encounter with the patient on the same day, and personally performed and documented my assessment and findings in the medical record. Bridgett Espinosa Oct 30, 2016 10:50 Can Brown MD Oct 30, 2016 17:14
--- NOTE | 2016-10-30 16:37 | HHI.PR ---
Subjective Remarks Pt denies any pain at this time. States that the NG tube is bothering her. No nausea or vomiting. Discussed w RN, no concerns at this time. Mena w urine dark color and GS aware. Per RN, pt had stent placed as well by urology Objective Vitals Vital Signs Date Time Temp Pulse Resp B/P (MAP) Pulse Ox O2 Delivery O2 Flow Rate FiO2 10/30/16 14:00 63 10/30/16 14:00 22 10/30/16 12:00 97.9 72 16 133/63 (86) 95 10/30/16 10:00 74 10/30/16 08:14 96 Nasal Cannula 1.00 10/30/16 08:00 63 10/30/16 08:00 97.8 68 20 108/54 (72) 99 10/30/16 07:00 98 Nasal Cannula 2.00 10/30/16 06:28 17 10/30/16 06:00 69 10/30/16 04:00 74 10/30/16 04:00 96.7 74 11 114/61 (78) 98 10/30/16 02:00 66 10/30/16 00:00 96.0 66 12 91/55 (67) 97 10/30/16 00:00 66 10/29/16 22:00 96.3 76 14 102/58 (73) 98 10/29/16 22:00 76 10/29/16 21:45 76 12 114/65 (81) 99 Nasal Cannula 4 10/29/16 21:45 14 10/29/16 21:44 14 10/29/16 21:41 14 10/29/16 21:30 74 14 115/69 (84) 99 Nasal Cannula 4 10/29/16 21:15 66 14 121/68 (85) 99 Nasal Cannula 4 10/29/16 21:00 67 14 127/70 (89) 99 Nasal Cannula 4 10/29/16 20:45 67 12 124/63 (83) 99 Simple Mask 8 10/29/16 20:30 68 14 129/66 (87) 100 Simple Mask 8 10/29/16 20:15 66 18 125/61 (82) 100 Simple Mask 8 10/29/16 20:00 97.6 64 22 111/56 (74) 100 Simple Mask 8 I/O 9/12/17 10/29/16 10/29/16 10/30/16 10/30/16 10/30/16 07:00 15:00 23:00 07:00 15:00 23:00 Intake Total 1100 ml 2900 ml 1724 ml 600 ml Output Total 1070 ml 410 ml Balance 1100 ml 1830 ml 1314 ml 600 ml Intake IV Total 1100 ml 400 ml 1724 ml 600 ml Other 2500 ml Output Urine Total 775 ml 260 ml Stool Total 0 ml Gastric Drainage Total 0 ml Drainage Total 45 ml 150 ml Estimated Blood Loss 250 ml Result Diagram: 10/30/16 0507 10/30/16 0507 Objective Remarks GENERAL: Thin elderly female sitting up in bed with NG tube in place. EYES: Extraocular motions intact. ENT: Nose with NG tube. Airway patent. NECK: Trachea midline. CARDIOVASCULAR: Regular rate and rhythm without murmurs. RESPIRATORY: Clear to auscultation. Breath sounds equal bilaterally. No wheezes GASTROINTESTINAL: Abdomen soft, hypoactive Bowel sounds, minimal discomfort, ostomy tube noted, no stool present, AN drain present w serosanguinous fluid. dressing in place. MUSCULOSKELETAL: Extremities without edema. NEUROLOGICAL: Awake and alert. Cranial nerves II through XII intact. Motor and sensory grossly within normal limits. Normal speech. A/P Assessment and Plan Sigmoid mass w contained perforation noted on outpatient CT scan: CT abdomen and pelvis showed an ill-defined mass in the sigmoid region with contained perforation. Questionable metastatic disease to liver. Mild hydronephrosis. General surgery following. s/pPlacement ureteral stent (Dr. Carvajal), Exp Laparotomy, Mobilization splenic flexure of colon, Resection distal transverse and descending colon, Saran-cut liver biopsy x 2 End colostomy POD 1. pain mgt/rehab/dvt proph/ on cipro/flagyl per GS. Mild hyponatremia: monitor for now. Breast cancer: Status post left mastectomy. Patient admits that she did not finish her course of chemotherapy as she could not tolerate it. Oncologist is in [facility]. hyperthyroidism: on home medication CAD with bypass surgery: on home medication hyperlipidemia: on home medication DVT prophylaxis: lovenox Discharge Planning d/c pending further work-up and clinical improvement. awaiting pathology report Rosio Kerns MD Oct 30, 2016 16:36
[2016-10-30] MEDS: CIPROFLOXACIN 400 MG PREMIX 200 ML IV SCH (20:41)
[2016-10-30] MEDS: ENOXAPARIN SODIUM 30 MG/0.3 ML SYRINGE SQ SCH (20:42)
--- NOTE | 2016-10-30 21:57 | EKG ---
Date Performed: 10/29/2016 Time Performed: 11:41:13 PTAGE: 80 years EKG: Sinus rhythm WITH OCCASIONAL VENTRICULAR PREMATURE COMPLEXES WITH OCCASIONAL SUPRAVENTRICULAR PREMATURE COMPLEXES INFERIOR MYOCARDIAL INFARCTION ANTEROLATERAL MYOCARDIAL INFARCTION ABNORMAL ECG NO PREVIOUS TRACING DOCTOR: Brenda Mccord Interpretating Date/Time 10/30/2016 21:56:40
[2016-10-31] VITALS (8 sets, daily range): BP systolic 104–137; BP diastolic 54–79; PULSE 77–94; RESP 16–20; TEMP 97.3–98.1; O2SAT 96–99
[2016-10-31] MEDS: LACTATED RINGER'S 1000 ML INJ 1,000 ML IV SCH ×3 (02:24→21:16)
[2016-10-31] MEDS: PCA - TOTAL MG MORPHINE DELIVERED PER SHIFT SCH ×2 (04:38→13:45)
[2016-10-31] MEDS: metroNIDAZOLE 500 MG INJ 100 ML IV SCH ×3 (05:08→21:10)
--- NOTE | 2016-10-31 07:59 | MP ---
cc: CAN BROWN M.D., ABDUL J. M.D. DATE OF SURGERY 10/29/2016 PROCEDURE 1. Exploratory laparotomy 2. Mobilization splenic flexure of the colon 3. Resection of distal transverse and descending colon 4. Saran-Cut liver biopsy x2 from the medial segment of the left lobe of the liver. 5. End colostomy PREOPERATIVE DIAGNOSIS Perforated sigmoid colon mass. POSTOPERATIVE DIAGNOSIS Perforated sigmoid colon mass with likely neoplasm with metastatic disease to the liver. ANESTHESIA General endotracheal SURGEON Can Brown MD ESTIMATED BLOOD LOSS 250 mL FLUIDS 2500 mL crystalloid, 750 mL urine COMPLICATIONS None DRAINS AN x1 SPECIMEN 1. Distal transverse and descending colon to pathology. 2. Saran-Cut liver biopsies x2 to pathology. PROCEDURE IN DETAIL The patient was taken to the operating room and underwent a ureteral stent placement by Dr. Derek Carvajal. Please see his dictation for this portion of the procedure. This was performed as the patient had a large mass in the left colon abutting the ureter and causing a mild amount of hydroureter. When Dr. Carvajal was finished with his procedure, the patient was taken out of lithotomy and placed in the supine position. A Mena catheter was in place already. The abdomen was prepped and draped. Time-out was taken confirming the correct patient, site, and procedure to be performed. An incision was made in the patient's previous incision. Dissection was carried down to the fascia and the fascia was then divided with the anterior abdomen elevated. The peritoneal cavity was entered uneventfully. Careful exploration of the abdomen revealed a small amount of bloody ascites near the liver. Lesions were able to be palpated in the liver in the medial segment of the left lobe of liver as well as two lesions laterally on the dome of the liver in the right lobe. Attention was then turned to the mass which was located in the descending colon. A portion of the transverse colon was also involved with tumor. The splenic flexure of the colon was uninvolved, but proximal and distal to this, tumor was firmly adherent. The tumor was adhered to the lateral sidewall. Some of the anterior abdominal wall and posteriorly to the retroperitoneum. The transverse colon was selected just past the middle colic vessels and divided with a HAIR stapler. The splenic flexure was completely mobilized and blood supply ligated with successive clamping and ligation. The omentum was mobilized upwards and any containing tumor or around the tumor was sacrificed with the tumor itself. The sigmoid colon was then divided with the HAIR stapler and then the colon was mobilized from the lateral sidewall medially. Care was taken to palpate the stent in the ureter and the colon and tumor was peeled off in both blunt dissection, use of electrocautery, and sharp dissection. The tumor was completely excised with successive clamping and ligation as well utilizing silk sutures. The entire tumor was removed, marked proximally and distally with silk sutures and passed off the table. The abdomen was reexamined. The lateral sidewall was made hemostatic with electrocautery. No bleeding was noted posteriorly. The ureter was able to be palpated and was seen to be intact. The medial segment of the left lobe of the liver was able to be palpated and the tumor was easiest to be biopsied from this location. Two cores of liver were taken with a Saran-Cut needle and submitted for specimen analysis. These two sites were made hemostatic with electrocautery. When this was completed, the abdomen was irrigated and a colostomy was made in the left upper quadrant. This was brought out via separate stab incision. After opening the fascia in a cruciate fashion. The muscles were split with the Army-Camak retractors. The posterior fascia was divided in a cruciate fashion as well. A Cari clamp was used to bring the transverse colon through the defect and then with care being taken to not twist the colon. The colon was fixed to the fascia at two points with 3-0 Vicryl suture. At this point, the abdomen was reinspected and found to be clean and dry. A #19 Channel drain was brought out via the right lower quadrant stab incision and affixed to the skin with a 2-0 nylon suture. The drain was placed in the pelvis and run along the left gutter. Before closing the abdomen, confirmation of the nasogastric tube in the stomach was made manually by the surgeon. The abdomen was then closed with a running looped #1 PDS suture. The skin was closed with gabriel. This was toweled off and the colostomy then matured with 3-0 Vicryl suture after opening the staple line and removing it. A 57 mm colostomy appliance was applied and the midline was dressed with a Primapore dressing. A 4x4 was placed around the drain site. Sponge, needle and instrument counts were reported to be correct. The patient was extubated and taken back to the recovery room in stable condition. MD INEZ Jones/DJDalton /8:33 PM /7:39 AM DENI
[2016-10-31] MEDS: SODIUM CHLORIDE 0.9% FLUSH 5 ML FLUSH IVF SCH ×2 (08:05→21:16)
[2016-10-31] MEDS: DOCUSATE SODIUM 50 MG/SENNA 8.6 MG TAB PO SCH ×2 (08:14→21:14)
[2016-10-31 08:16] LABS: AUTOMATED NEUTROPHIL # 12.7 TH/MM3 (1.8-7.7); BASOPHIL % 0.2 % (0.0-2.0); EOSINOPHIL % 0.1 % (0.0-4.0); HEMATOCRIT 33.6 % (35.0-46.0); HEMO FLAGS DIFF FINAL; LYMPH % 7.5 % (9.0-44.0); LYMPHOCYTE # 1.1 TH/MM3 (1.0-4.8); MEAN CELL VOLUME 82.1 FL (80.0-100.0); MEAN CORPUSCULAR HEMOGLOBIN 26.4 PG (27.0-34.0); MEAN CORPUSCULAR HGB CONC 32.2 % (32.0-36.0); MONO % 5.6 % (0.0-8.0); NEUT % 86.6 % (16.0-70.0); PLATELET COUNT 449 TH/MM3 (150-450); RED BLOOD COUNT 4.09 MIL/MM3 (4.00-5.30); RED CELL DISTRIBUTION WIDTH 15.8 % (11.6-17.2); WHITE BLOOD COUNT 14.7 TH/MM3 (4.0-11.0)
[2016-10-31 09:13] LABS: BICARBONATE 27.5 MEQ/L (21.0-32.0); MAGNESIUM 1.9 MG/DL (1.5-2.5)
[2016-10-31] MEDS ORDERED: SODIUM CHLORID 0.9% 500 ML INJ 500 ML IV ONE (10:15)
--- NOTE | 2016-10-31 12:18 | PD.WCN.NOT ---
Wound Consult Description: Consult placed for Ostomy Management Communicated with: Patient Patients FRANCIS Espinosa Recommendation: Read booklet left on bedside table for introduction into What to expect after Colostomy Surgery Will follow up with patient on Friday10/31/16 to answer questions and provide Colostomy teaching Additional Information: Patient seen on for Ostomy Management. [facility] kit provided with information booklet given. To follow up with patient for further teaching Friday11/01/16 Ostomy Date of Surgery: Oct 29, 2016 April Valenzuela Oct 31, 2016 12:18
--- NOTE | 2016-10-31 15:20 | HHI.PR ---
Subjective Remarks Pt seen earlier, doing well. pain controlled. no nausea or vomiting. Tolerating sips of clears. NG tube has been removed and she is pleased.no concerns at this time. Objective Vitals Vital Signs Date Time Temp Pulse Resp B/P (MAP) Pulse Ox O2 Delivery O2 Flow Rate FiO2 10/31/16 13:45 18 10/31/16 12:00 97.9 77 16 136/64 (88) 97 10/31/16 08:58 97 21 10/31/16 08:00 97.3 86 18 137/69 (91) 97 10/31/16 04:39 18 10/31/16 04:38 18 10/31/16 00:00 98.1 94 20 104/54 (71) 96 10/30/16 20:41 18 10/30/16 20:00 96.8 89 20 128/61 (83) 97 10/30/16 18:00 71 10/30/16 16:00 97.6 78 23 139/63 (88) 96 I/O 10/30/16 10/30/16 10/30/16 10/31/16 10/31/16 10/31/16 07:00 15:00 23:00 07:00 15:00 23:00 Intake Total 1724 ml 600 ml 1688 ml 530 ml 600 ml Output Total 410 ml 450 ml 405 ml 80 ml Balance 1314 ml 600 ml 1238 ml 125 ml 520 ml Intake Oral 420 ml 0 ml IV Total 1724 ml 600 ml 1268 ml 530 ml 600 ml Output Urine Total 260 ml 350 ml 375 ml Stool Total 0 ml 10 ml Gastric Drainage Total 0 ml Drainage Total 150 ml 90 ml 30 ml 80 ml Result Diagram: 10/31/1629 10/31/16628 Objective Remarks GENERAL: Thin elderly female sitting up in recliner EYES: Extraocular motions intact. ENT: Airway patent. NECK: Trachea midline. CARDIOVASCULAR: Regular rate and rhythm without murmurs. RESPIRATORY: Clear to auscultation. Breath sounds equal bilaterally. No wheezes GASTROINTESTINAL: Abdomen soft, hypoactive Bowel sounds, minimal discomfort, ostomy tube noted, no stool present, AN drain present w serosanguinous fluid. dressing in place. MUSCULOSKELETAL: Extremities without edema. NEUROLOGICAL: Awake and alert. Cranial nerves II through XII intact. Motor and sensory grossly within normal limits. Normal speech. A/P Assessment and Plan Sigmoid mass w contained perforation noted on outpatient CT scan: CT abdomen and pelvis showed an ill-defined mass in the sigmoid region with contained perforation. Questionable metastatic disease to liver. Mild hydronephrosis. General surgery following. s/pPlacement ureteral stent (Dr. Carvajal), Exp Laparotomy, Mobilization splenic flexure of colon, Resection distal transverse and descending colon, Saran-cut liver biopsy x 2 End colostomy POD 2. pain mgt/rehab/dvt proph/ on cipro/flagyl per GS. WBC trending down. continue to monitor. Pathology report pending. cultures growing mixed Anaerobes Mild hyponatremia: monitor for now. Breast cancer: Status post left mastectomy. Patient admits that she did not finish her course of chemotherapy as she could not tolerate it. Oncologist is in [facility]. hyperthyroidism: on home medication CAD with bypass surgery: on home medication hyperlipidemia: on home medication DVT prophylaxis: lovenox Discharge Planning d/c pending further work-up and clinical improvement. awaiting pathology report Rosio Kerns MD Oct 31, 2016 15:20
--- NOTE | 2016-10-31 15:56 | HHI.PR ---
Subjective Subjective Notes Up to chair Pain controlled NGT causing discomfort Objective Vitals/I&O Vital Signs Date Time Temp Pulse Resp B/P (MAP) Pulse Ox O2 Delivery O2 Flow Rate FiO2 10/31/16 14:00 18 10/31/16 12:00 97.9 77 136/64 (88) 97 10/31/16 08:58 21 10/30/16 08:14 Nasal Cannula 1.00 Labs Laboratory Tests Test 10/31/16 06:29 White Blood Count 14.7 Red Blood Count 4.09 Hemoglobin 10.8 Hematocrit 33.6 Mean Corpuscular Volume 82.1 Mean Corpuscular Hemoglobin 26.4 Mean Corpuscular Hemoglobin Concent 32.2 Red Cell Distribution Width 15.8 Platelet Count 449 Mean Platelet Volume 8.0 Neutrophils (%) (Auto) 86.6 Lymphocytes (%) (Auto) 7.5 Monocytes (%) (Auto) 5.6 Eosinophils (%) (Auto) 0.1 Basophils (%) (Auto) 0.2 Neutrophils # (Auto) 12.7 Lymphocytes # (Auto) 1.1 Monocytes # (Auto) 0.8 Eosinophils # (Auto) 0.0 Basophils # (Auto) 0.0 CBC Comment DIFF FINAL Differential Comment Blood Urea Nitrogen 5 Creatinine 0.77 Random Glucose 117 Calcium Level 8.0 Magnesium Level 1.9 Sodium Level 136 Potassium Level 4.0 Chloride Level 102 Carbon Dioxide Level 27.5 Anion Gap 7 Estimat Glomerular Filtration Rate 72 Date/Time Source Procedure Growth Status 10/29/16 18:08 Fluid Peritoneal Fluid Gram Stain - Final Complete 10/29/16 18:08 Body Fluid Culture - Final Mixed Anaerobes Complete Radiology Outpatient CT abd/pelvis shows sigmoid region mass with contained perforation Cardiovascular: Regular Lungs: Clear Abdomen: Other (midline incision ---dressing changed---incision c/d/i with gabriel; AN with SS fluid; Colsotomy stoma pink with no output in collection bag ) Extremities: No edema Narrative Exam Mena in place with dark yellow urine A/P Assessment and Plan 80 year old female with obstructing colon mass; POD2 Placement ureteral stent ( Dr. Carvajal); Exp Laparotomy; Mobilization splenic flexure of colon; Resection distal transverse and descending colon ; Saran-cut liver biopsy x 2; End colostomy -DC NGT -Clear liquids -IVF -Give 500 cc bolus -Await pathology -Continue AN care -Continue Mena -PT eval and treat -Consult to Colostomy Nurse Attending Note - Dr. Brown Patient reports minimal discomfort in incision when she coughs. Colostomy pink with serous drainage in bag. AN drainage serosanguinous. 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 I reviewed and agree with the findings presented. I attest that I had a [id number] encounter with the patient on the same day, and personally performed and documented my assessment and findings in the medical record. Bridgett Espinosa Oct 31, 2016 15:56 Can Brown MD Oct 31, 2016 16:40
--- NOTE | 2016-10-31 16:39 | HHI.FF ---
Face to Face Verification Diagnosis: (1) Colonic mass Home Health Nursing Order: Wound care and dressing changes Instructions: Colostomy care and teaching Midline incision: Dry dressing change daily and PRN I have seen patient Esthela Tee on 10/31/16. My clinical findings support the need for the requested home health care services because: Limited ability to care for self High risk of falls I certify that my clinical findings support that this patient is homebound because: Post-op weakness Bridgett Espinosa [employer]POS[employer]AY[employer] WORK[employer] Oct 31, 2016 16:39
[2016-10-31] MEDS ORDERED: ACETAMINOPHEN/HYDROcodone 325 MG/5 MG TAB PO PRN ×2 (16:45)
[2016-10-31] MEDS: ENOXAPARIN SODIUM 30 MG/0.3 ML SYRINGE SQ SCH (17:17)
[2016-10-31] MEDS: CIPROFLOXACIN 400 MG PREMIX 200 ML IV SCH (21:10)
[2016-11-01] VITALS: BP 131/75; PULSE 89; RESP 17; TEMP 96; O2SAT 94
[2016-11-01] MEDS: metroNIDAZOLE 500 MG INJ 100 ML IV SCH ×3 (05:25→21:16)
[2016-11-01 08:00] VITALS: BP 136/70; PULSE 87; RESP 18; TEMP 97; O2SAT 92
[2016-11-01] MEDS: DOCUSATE SODIUM 50 MG/SENNA 8.6 MG TAB PO SCH ×2 (09:00→21:17)
[2016-11-01] MEDS: SODIUM CHLORIDE 0.9% FLUSH 5 ML FLUSH IVF SCH ×2 (09:00→21:00)
[2016-11-01] MEDS: LACTATED RINGER'S 1000 ML INJ 1,000 ML IV SCH ×2 (09:46→21:16)
--- NOTE | 2016-11-01 10:56 | HHI.PR ---
Subjective Subjective Notes Up to chair Has been ambulating in room Objective Vitals/I&O Vital Signs Date Time Temp Pulse Resp B/P (MAP) Pulse Ox O2 Delivery O2 Flow Rate FiO2 11/01/16 08:00 97.0 87 18 136/70 (92) 92 10/31/16 08:58 21 10/30/16 08:14 Nasal Cannula 1.00 Labs Date/Time Source Procedure Growth Status 10/29/16 18:08 Fluid Peritoneal Fluid Gram Stain - Final Complete 10/29/16 18:08 Body Fluid Culture - Final Mixed Anaerobes Complete Radiology Outpatient CT abd/pelvis shows sigmoid region mass with contained perforation Cardiovascular: Regular Lungs: Clear Abdomen: Other (midline incision with gabriel; c/d/i; AN with SS thin fluid; colostomy in place with pink stoma--- serous fluid in collection bag ) Extremities: No edema Narrative Exam Mena removed A/P Assessment and Plan 80 year old female with obstructing colon mass; POD3 Placement ureteral stent ( Dr. Carvajal); Exp Laparotomy; Mobilization splenic flexure of colon; Resection distal transverse and descending colon ; Saran-cut liver biopsy x 2; End colostomy -Mena out; + post removal void -Continue clear liquids -IVF -Consult to Medical Oncology-- Dr. Dempsey -Continue AN care -PT eval and treat -Consult to Colostomy Nurse -CM consult for [facility] --Face to Face complete Attending Note - Dr. Brown Wound dressing dry; AN output sanguinous (130 ml) Colostomy viable, swollen/edematous, but with minimal serous fluid in bag. Patient knows how to care for colostomy, as had an ileostomy previously Pathology reviewed with patient, , and daughter and copy provided to them. Dr. Dempsey saw patient today as well; he will see in office in two weeks. Discussed possible port placement once she is discharged. Follow up my office next week after discharge home for staple removal. Will need to go home on Flagyl for anaerobes growing in culture The exam, history, and the medical decision-making described in the above note were completed with the assistance of the mid-level provider. I reviewed and agree with the findings presented. I attest that I had a [id number] encounter with the patient on the same day, and personally performed and documented my assessment and findings in the medical record. Bridgett Espinosa Nov 01, 2016 10:56 Can Brown MD Nov 01, 2016 16:50
[2016-11-01 12:00] VITALS: BP 144/67; PULSE 88; RESP 16; TEMP 96.3; O2SAT 97
--- NOTE | 2016-11-01 15:23 | PD.WCN.NOT ---
Wound Consult Description: Consult placed for Ostomy Management Communicated with: Patient Patient at bedside Recommendation: Patient seen on for Ostomy assessment and teaching. Ostomy Type: Colostomy Surgeon: Can Brown MD Date of Surgery: Oct 29, 2016 Complete: [facility] Educated patient on: How to release air from pouch using flange When to change appliance How to change appliance Peristomal skin care Patient will be sent home with 4 appliances in size 2 3/4" for stoma size 2" Additional information Patient seen on with Dr Brown and FRANCIS Espinosa with at bedside. Stoma is noted to left quadrant and measuring 2". Stoma is round, pink , moist, moderately protruding with lumen noted in center. Stoma is functioning with minimal liquid effluent noted in pouch. Appliances ordered from [facility] for patient to go home with at discharge. Barrier is intact with low pressure adaptor in place. Patient asked if the bag could face down. Patient was shown how to remove pouch from low pressure adaptor to change the position of the pouch. Patient had no other questions at this time. Supplies to be picked up by inspector automatic typewriter today and taken to patient for more teaching and answering of questions. April Valenzuela [facility] Nov 01, 2016 15:23
--- NOTE | 2016-11-01 15:24 | HHI.PR ---
Subjective Remarks Pt has no pain, denies any nausea or vomiting. comfortable. Objective Vitals Vital Signs Date Time Temp Pulse Resp B/P (MAP) Pulse Ox O2 Delivery O2 Flow Rate FiO2 11/01/16 12:00 96.3 88 16 144/67 (92) 97 11/01/16 08:00 97.0 87 18 136/70 (92) 92 11/01/16 00:00 96.0 89 17 131/75 (93) 94 10/31/16 20:00 97.3 85 17 131/64 (86) 98 10/31/16 16:00 97.8 79 16 128/79 (95) 99 I/O 10/31/16 10/31/16 10/31/16 11/01/16 11/01/16 11/01/16 07:00 15:00 23:00 07:00 15:00 23:00 Intake Total 530 ml 600 ml 2080 ml 866 ml Output Total 405 ml 80 ml 1185 ml 1060 ml Balance 125 ml 520 ml 895 ml -194 ml Intake Oral 0 ml 480 ml 240 ml IV Total 530 ml 600 ml 1600 ml 626 ml Output Urine Total 375 ml 1000 ml 950 ml Drainage Total 30 ml 80 ml 185 ml 110 ml # Bowel Movements 0 Result Diagram: 10/31/1662810/31/16628 Objective Remarks GENERAL: Thin elderly female sitting up in recliner EYES: Extraocular motions intact. ENT: Airway patent. NECK: Trachea midline. CARDIOVASCULAR: Regular rate and rhythm without murmurs. RESPIRATORY: Clear to auscultation. Breath sounds equal bilaterally. No wheezes GASTROINTESTINAL: Abdomen soft, hypoactive Bowel sounds, minimal discomfort, ostomy bag noted, no stool present, dressing in place. MUSCULOSKELETAL: Extremities without edema. NEUROLOGICAL: Awake and alert. Cranial nerves II through XII intact. Motor and sensory grossly within normal limits. Normal speech. A/P Assessment and Plan Sigmoid mass w contained perforation noted on outpatient CT scan: CT abdomen and pelvis showed an ill-defined mass in the sigmoid region with contained perforation. Questionable metastatic disease to liver. Mild hydronephrosis. General surgery following. s/pPlacement ureteral stent (Dr. Carvajal), Exp Laparotomy, Mobilization splenic flexure of colon, Resection distal transverse and descending colon, Saran-cut liver biopsy x 2 End colostomy POD 3. pain mgt/rehab/dvt proph/ on cipro/flagyl per GS. WBC trending down. continue to monitor. Pathology report pending. cultures growing mixed Anaerobes. on clear liquid diet. Mild hyponatremia: monitor for now. Breast cancer: Status post left mastectomy. Patient admits that she did not finish her course of chemotherapy as she could not tolerate it. Oncologist is in [facility]. hyperthyroidism: on home medication CAD with bypass surgery: on home medication hyperlipidemia: on home medication DVT prophylaxis: lovenox Discharge Planning d/c pending further work-up and clinical improvement. awaiting pathology report med/onc has been consulted by surgical team. Rosio Kerns MD Nov 01, 2016 15:24
[2016-11-01 16:00] VITALS: BP 148/60; PULSE 88; RESP 16; TEMP 97.1; O2SAT 97
[2016-11-01] MEDS: ENOXAPARIN SODIUM 30 MG/0.3 ML SYRINGE SQ SCH ×2 (17:22→21:17)
--- NOTE | 2016-11-01 18:14 | MB ---
cc: LILIANA BROWN M.D., ABDUL J. M.D. DATE OF CONSULTATION 11/01/16 REASON FOR CONSULTATION Consult requested by Dr. Brown for evaluation of metastatic colon cancer. HISTORY OF PRESENT ILLNESS Esthela is a pleasant 80-year-old female. She is known to me as her is one of my patients. The patient has a history of left breast cancer which was diagnosed in 2011 when she used to live in [facility]. She says that all the lymph nodes were negative. She had left mastectomy and she did not require any chemotherapy or hormone therapy. Those records are not available. She also has a history of coronary artery disease, underwent coronary artery bypass surgery. She has a history of hypercholesterolemia, hypertension and hypothyroidism. The patient has been having pain in the left side of the abdomen for the last [id number] weeks. She went to see her new primary physician as the previous one had retired. A CAT scan of the abdomen and pelvis was ordered. She went to [place] to have that test done. The radiologist found that the patient has a sigmoid colon mass with the perforation. The patient was sent to the emergency room at [place]. The patient was evaluated by Dr. Brown, general surgeon. The patient underwent surgery on October 29, 3 days ago. She had exploratory laparotomy, mobilization of the splenic flexure of the colon, resection of the distal transverse and descending colon and Saran-Cut liver biopsy x2 from the medial segment of the left lobe of the liver and end colostomy. The pathology report came back positive for colon cancer. I have been asked to see the patient for further evaluation. The patient never had any colonoscopy. She stated nobody had recommended her to have a colonoscopy. She denies any blood in the stool. She denies any weight loss or anorexia. Her main symptoms were abdominal pain, mostly on the left side. She denies any cough, shortness of breath. The patient is now on liquid diet which she has been tolerating it well. She has a colostomy bag but she has no bowel movement as yet. She has been complaining of abdominal discomfort due to the recent surgery. The rest of the review of systems is negative. PAST MEDICAL HISTORY Left breast cancer diagnosed in 2011, coronary artery disease, hypercholesterolemia, hypertension, hypothyroidism. PAST SURGICAL HISTORY x2, coronary artery bypass surgery, left modified radical mastectomy 2011 in [facility]. PAST SURGERIES ALLERGIES TO PENICILLIN AND LATEX. MEDICATIONS 1. Swink. 2. Lovenox. 3. Cipro. 4. Amberly-Colace. 5. Flagyl. 6. Zofran. 7. Benadryl. 8. Senokot. 9. Lactulose. FAMILY HISTORY Parents from old age. The patient has no sisters. She had one brother who during the [place] war. The patient had one son who from congestive heart failure. The patient has one daughter who is alive and well. SOCIAL HISTORY The patient is , lives with her . The patient does not smoke cigarettes, does not drink alcohol. 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 PHYSICAL EXAMINATION GENERAL: This is a well-developed, well-nourished white female in no apparent distress. VITAL SIGNS: Temperature 96.3, heart rate is 88, blood pressure 144/67, O2 saturation 97% on room air. HEENT: PERRLA, EOMI, anicteric. No oral lesions are noted. No lymphadenopathy noted. LUNGS: Lungs are clear. No wheezing, rhonchi or rales. HEART: Heart is regular rate and rhythm. ABDOMEN: Abdomen is soft. Decreased bowel sounds. Colostomy bag noted which is empty. EXTREMITIES: No pedal edema. NEUROLOGY: Awake, alert, oriented times three. SKIN: No significant lesions are noted. ASSESSMENT 1. 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 2. History of left breast cancer status post left modified radical mastectomy in 2011. 3. Coronary artery disease status post coronary artery bypass surgery. 4. Hypercholesterolemia. 5. Hypertension. 6. Hypothyroidism. PLAN I have reviewed her available records and I had an extensive discussion with the patient regarding the diagnosis, treatment and prognosis of colon cancer. I discussed the pathology report which indicates that she has invasive moderately differentiated adenocarcinoma of the transverse colon. The omentum also shows invasive moderately differentiated adenocarcinoma. The liver biopsy is also confirmed to have moderately differentiated adenocarcinoma. Macroscopic tumor perforation was present. The tumor is moderately differentiated, invasive through the muscularis propria into the pericolorectal tissue. Surgical margins are negative. Lymphovascular invasion was present. There is no perineural invasion noted. There is no tumor deposits noted. All 10 lymph nodes are negative for metastatic disease. She has a T3 N0 M1, stage IV colon cancer. We did discuss briefly about the staging of colon cancer. We discussed that she would need chemotherapy. I did not go into detail about the chemotherapy at this time as I believe it is premature. I advised her that she needs to come to the office in 2 weeks after she is discharged so that we can discuss further treatment plan for stage IV colon cancer. I will order the CEA tumor marker. Her liver enzymes are normal. She was not anemic when she came into the hospital. But now her hemoglobin has dropped to 10.8. I will check the iron studies as well. The patient denies any blood in the stool. Her is not present at this time. But I will speak to him when he will come into the office in 2 weeks with the patient. Please give her an appointment to see me in 2 weeks once she is discharged to home. Thank you for asking my opinion. Dar Dempsey MD /MAAURI /1:44 PM /5:56 PM DENI
[2016-11-01 20:00] VITALS: BP 133/76; PULSE 92; RESP 16; TEMP 96.4; O2SAT 95
[2016-11-01] MEDS: CIPROFLOXACIN 400 MG PREMIX 200 ML IV SCH (21:16)
[2016-11-01 22:47] LABS: TRANSFERRIN IRON PROFILE 148 MG/DL (200-360)
[2016-11-01 22:50] LABS: FERRITIN 105 NG/ML (8-252)
[2016-11-02] VITALS: BP 140/71; PULSE 101; RESP 16; TEMP 95.5; O2SAT 92
[2016-11-02] MEDS: metroNIDAZOLE 500 MG INJ 100 ML IV SCH ×3 (04:18→22:48)
[2016-11-02 06:02] LABS: AUTOMATED NEUTROPHIL # 12.4 TH/MM3 (1.8-7.7); BASOPHIL % 0.3 % (0.0-2.0); EOSINOPHIL % 0.1 % (0.0-4.0); HEMATOCRIT 36.6 % (35.0-46.0); HEMO FLAGS DIFF FINAL; LYMPH % 6.4 % (9.0-44.0); LYMPHOCYTE # 0.9 TH/MM3 (1.0-4.8); MEAN CELL VOLUME 83.2 FL (80.0-100.0); MEAN CORPUSCULAR HEMOGLOBIN 26.8 PG (27.0-34.0); MEAN CORPUSCULAR HGB CONC 32.3 % (32.0-36.0); MONO % 5.4 % (0.0-8.0); NEUT % 87.8 % (16.0-70.0); PLATELET COUNT 425 TH/MM3 (150-450); RED CELL DISTRIBUTION WIDTH 16.3 % (11.6-17.2); WHITE BLOOD COUNT 14.1 TH/MM3 (4.0-11.0)
[2016-11-02 06:23] LABS: MAGNESIUM 1.7 MG/DL (1.5-2.5); POTASSIUM 3.8 MEQ/L (3.5-5.1)
[2016-11-02 08:00] VITALS: BP 137/77; PULSE 108; RESP 16; TEMP 97.7; O2SAT 92
[2016-11-02] MEDS: SODIUM CHLORIDE 0.9% FLUSH 5 ML FLUSH IVF SCH ×2 (09:00→21:00)
[2016-11-02] MEDS: DOCUSATE SODIUM 50 MG/SENNA 8.6 MG TAB PO SCH ×2 (09:03→21:00)
[2016-11-02] MEDS ORDERED: FUROSEMIDE 20 MG TAB PO ONE (09:15)
--- NOTE | 2016-11-02 10:03 | HHI.PR ---
Subjective Subjective Notes Resting in bed Feels more edematous than yesterday Objective Vitals/I&O Vital Signs Date Time Temp Pulse Resp B/P (MAP) Pulse Ox O2 Delivery O2 Flow Rate FiO2 11/02/16 08:00 97.7 108 16 137/77 (97) 92 10/31/16 08:58 21 10/30/16 08:14 Nasal Cannula 1.00 Labs Laboratory Tests Test 11/01/16 21:20 11/02/16 04:58 Iron Level 41 Total Iron Binding Capacity 207 Percent Iron Saturation 19.8 Ferritin 105 Carcinoembryonic Antigen 20.1 White Blood Count 14.1 Red Blood Count 4.40 Hemoglobin 11.8 Hematocrit 36.6 Mean Corpuscular Volume 83.2 Mean Corpuscular Hemoglobin 26.8 Mean Corpuscular Hemoglobin Concent 32.3 Red Cell Distribution Width 16.3 Platelet Count 425 Mean Platelet Volume 8.0 Neutrophils (%) (Auto) 87.8 Lymphocytes (%) (Auto) 6.4 Monocytes (%) (Auto) 5.4 Eosinophils (%) (Auto) 0.1 Basophils (%) (Auto) 0.3 Neutrophils # (Auto) 12.4 Lymphocytes # (Auto) 0.9 Monocytes # (Auto) 0.8 Eosinophils # (Auto) 0.0 Basophils # (Auto) 0.0 CBC Comment DIFF FINAL Differential Comment Blood Urea Nitrogen 3 Creatinine 0.75 Random Glucose 120 Calcium Level 7.8 Magnesium Level 1.7 Sodium Level 137 Potassium Level 3.8 Chloride Level 105 Carbon Dioxide Level 25.0 Anion Gap 7 Estimat Glomerular Filtration Rate 74 Date/Time Source Procedure Growth Status 10/29/16 18:08 Fluid Peritoneal Fluid Gram Stain - Final Complete 10/29/16 18:08 Body Fluid Culture - Final Mixed Anaerobes Complete Radiology Outpatient CT abd/pelvis shows sigmoid region mass with contained perforation Cardiovascular: Regular Lungs: Clear Abdomen: Other (midline incision with minimal drainage; AN with SS fluid; colostomy --stoma pink without any output ) Extremities: Other (mild BLE edema ) A/P Assessment and Plan 80 year old female with obstructing colon mass; POD4 Placement ureteral stent ( Dr. Carvajal); Exp Laparotomy; Mobilization splenic flexure of colon; Resection distal transverse and descending colon ; Saran-cut liver biopsy x 2; End colostomy -DC fluids; 1 time does of PO Lasix -Continue clear liquids until bowel function returns -Dr. Dempsey following -Continue AN care -PT eval and treat---OOB -Consult to Colostomy Nurse -CM consult for HHC --Face to Face complete I CERTIFY AND ATTEST THAT I PERSONALLY EXAMINED THE PATIENT IN THEIR ROOM. MS CASTREJON DOCUMENTED OUR VISIT AND ENTERED ORDERS IN THE EMR UNDER MY DIRECT SUPERVISION. I REVIEWED THE CARE PLAN WITH THE NURSING STAFF, THE PATIENT AND THEIR FAMILY. CLYDE SCOTT MD [facility] Bridgett CastrejonP Nov 02, 2016 10:03 Clyde Scott MD Nov 05, 2016 13:25
[2016-11-02 12:00] VITALS: BP 127/68; PULSE 96; RESP 16; TEMP 97.5; O2SAT 97
[2016-11-02] MEDS ORDERED: LEVOTHYROXINE SODIUM 50 MCG TAB PO ONE (13:30)
--- NOTE | 2016-11-02 13:43 | HHI.PR ---
Subjective Remarks Pt has no pain. Mentions that her legs got tight last night and felt SOB after activity this morning. She denies to me any prior hx of CHF however states that she was told that her heart was a "little weak" but she doesn't know how much. Just got the lasix ordered by sx. Currently she has no SOB, no CP/n/v. family at bedside. Objective Vitals Vital Signs Date Time Temp Pulse Resp B/P (MAP) Pulse Ox O2 Delivery O2 Flow Rate FiO2 11/02/16 12:00 97.5 96 16 127/68 (87) 97 11/02/16 08:00 97.7 108 16 137/77 (97) 92 11/02/16 00:00 95.5 101 16 140/71 (94) 92 11/01/16 20:00 96.4 92 16 133/76 (95) 95 11/01/16 16:00 97.1 88 16 148/60 (89) 97 I/O 11/01/16 11/01/16 11/01/16 11/02/16 11/02/16 11/02/16 07:00 15:00 23:00 07:00 15:00 23:00 Intake Total 866 ml 100 ml 1660 ml 493 ml Output Total 1060 ml 950 ml 170 ml Balance -194 ml 100 ml 710 ml 323 ml Intake Oral 240 ml 960 ml IV Total 626 ml 100 ml 700 ml 493 ml Output Urine Total 950 ml 850 ml Drainage Total 110 ml 100 ml 170 ml # Bowel Movements 0 Result Diagram: 11/02/16 0458 11/02/16 0458 Objective Remarks GENERAL: Thin elderly female sitting up in recliner EYES: Extraocular motions intact. ENT: Airway patent. NECK: Trachea midline. CARDIOVASCULAR: Regular rate and rhythm without murmurs. RESPIRATORY: Clear to auscultation. Breath sounds equal bilaterally. No wheezes or crackles auscultated GASTROINTESTINAL: Abdomen soft, hypoactive Bowel sounds, minimal discomfort, ostomy bag noted, no stool present, dressing in place. MUSCULOSKELETAL: Extremities 1+ pitting edema in lower extremities below the knees. NEUROLOGICAL: Awake and alert. Motor and sensory grossly within normal limits. Normal speech. A/P Assessment and Plan Sigmoid mass w contained perforation noted on outpatient CT scan: CT abdomen and pelvis showed an ill-defined mass in the sigmoid region with contained perforation. Questionable metastatic disease to liver. Mild hydronephrosis. General surgery following. s/pPlacement ureteral stent (Dr. Carvajal), Exp Laparotomy, Mobilization splenic flexure of colon, Resection distal transverse and descending colon, Saran-cut liver biopsy x 2 End colostomy POD 4. pain mgt/rehab/dvt proph/ on cipro/flagyl per GS. WBC trending down. continue to monitor. 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 Oncology evaluated the patient. Per Dr. Dempsey, she has stage IV colon cancer. He recommends pt f/u w him in the office in 2 weeks and she will require chemotherapy. cultures growing mixed Anaerobes. diet advanced to full liquids per sx. Mild hyponatremia: resolved Hx of ischemic cardiomyopathy however EF unknown. SOB w ambulation. She doesn't know her EF. Hold all IV fluids. Agree w dose of lasix. Check ECHO. monitor lower extremity edema. May need another dose of lasix in AM. Pt has no SOB at this time. Breast cancer: Status post left mastectomy. Patient admits that she did not finish her course of chemotherapy as she could not tolerate it. Oncologist is in [facility]. hyperthyroidism: on home medication CAD with bypass surgery: on home medication hyperlipidemia: on home medication DVT prophylaxis: lovenox Discharge Planning diet has been advanced to full liquid by Gen sx. oncology evaluated the patient and she has stage IV colon cancer, f/u w onc team in 2 weeks in clinic f/u ECHO results. Monitor lower ext edema awaiting clearance from sx. Rosio Kerns MD Nov 02, 2016 13:43
[2016-11-02 16:00] VITALS: BP 132/75; PULSE 89; RESP 18; TEMP 96.8; O2SAT 98
[2016-11-02 20:00] VITALS: BP 113/74; PULSE 95; RESP 16; TEMP 96.2; O2SAT 96
[2016-11-02] MEDS: CIPROFLOXACIN 400 MG PREMIX 200 ML IV SCH (22:47)
[2016-11-02] MEDS: CARVEDILOL 3.125 MG TAB PO SCH (22:48)
[2016-11-03] VITALS: BP 118/71; PULSE 86; RESP 20; TEMP 95.6; O2SAT 93
[2016-11-03] MEDS: metroNIDAZOLE 500 MG INJ 100 ML IV SCH ×2 (04:29→12:46)
[2016-11-03] MEDS ORDERED: LEVOTHYROXINE SODIUM 50 MCG TAB PO SCH (06:00)
[2016-11-03 07:48] LABS: BICARBONATE 25.5 MEQ/L (21.0-32.0); MAGNESIUM 1.6 MG/DL (1.5-2.5); POTASSIUM 3.7 MEQ/L (3.5-5.1)
[2016-11-03 08:00] VITALS: BP 124/69; PULSE 99; RESP 16; TEMP 95.9; O2SAT 94
[2016-11-03] MEDS: CARVEDILOL 3.125 MG TAB PO SCH (08:32)
[2016-11-03] MEDS: DOCUSATE SODIUM 50 MG/SENNA 8.6 MG TAB PO SCH (08:32)
[2016-11-03] MEDS: SODIUM CHLORIDE 0.9% FLUSH 5 ML FLUSH IVF SCH (08:33)
[2016-11-03] MEDS ORDERED: VALSARTAN 160 MG TAB PO SCH (09:00)
[2016-11-03] MEDS ORDERED: ATORVASTATIN 20 MG TAB PO SCH (09:00)
--- NOTE | 2016-11-03 09:41 | HHI.PR ---
Subjective Subjective Notes doing better today, tolerating liquids Objective Vitals/I&O Vital Signs Date Time Temp Pulse Resp B/P (MAP) Pulse Ox O2 Delivery O2 Flow Rate FiO2 11/03/16 08:00 95.9 99 16 124/69 (87) 94 10/31/16 08:58 21 10/30/16 08:14 Nasal Cannula 1.00 Labs Laboratory Tests Test 11/03/16 06:32 Blood Urea Nitrogen 5 Creatinine 0.73 Random Glucose 127 Calcium Level 7.5 Magnesium Level 1.6 Sodium Level 138 Potassium Level 3.7 Chloride Level 105 Carbon Dioxide Level 25.5 Anion Gap 8 Estimat Glomerular Filtration Rate 77 Date/Time Source Procedure Growth Status 10/29/16 18:08 Fluid Peritoneal Fluid Gram Stain - Final Complete 10/29/16 18:08 Body Fluid Culture - Final Mixed Anaerobes Complete Radiology Outpatient CT abd/pelvis shows sigmoid region mass with contained perforation Lungs: Clear Abdomen: Other (incision c/d/i, ostomy pink viable with stool) A/P Assessment and Plan 80 year old female with obstructing colon mass; s/pPlacement ureteral stent ( Dr. Carvajal); Exp Laparotomy; Mobilization splenic flexure of colon; Resection distal transverse and descending colon ; Saran-cut liver biopsy x 2; End colostomy -Continue clear liquids until bowel function returns advance today -Dr. Dempsey following -Continue AN care -PT eval and treat---OOB -Consult to Colostomy Nurse -CM consult for HHC - possible d/c today if tolerating diet Sami Vargas MD Nov 03, 2016 09:40
[2016-11-03 12:00] VITALS: BP 127/67; PULSE 96; RESP 17; TEMP 96.3; O2SAT 95
--- NOTE | 2016-11-03 13:04 | HHI.PR ---
Subjective Remarks Patient has been cleared by general surgery. Wants to go home. Feels comfortable with colostomy and draining her AN drains Have discussed with her and her . They wish to be discharged home follow-up with her primary care physician Dr. Staley follow-up with surgery Follow-up with oncology Objective Vitals Vital Signs Date Time Temp Pulse Resp B/P (MAP) Pulse Ox O2 Delivery O2 Flow Rate FiO2 11/03/16 12:00 96.3 96 17 127/67 (87) 95 11/03/16 08:00 95.9 99 16 124/69 (87) 94 11/03/16 00:00 95.6 86 20 118/71 (87) 93 11/02/16 20:00 96.2 95 16 113/74 (87) 96 11/02/16 16:00 96.8 89 18 132/75 (94) 98 I/O 11/02/16 11/02/16 11/02/16 11/03/16 11/03/16 11/03/16 07:00 15:00 23:00 07:00 15:00 23:00 Intake Total 493 ml 720 ml Output Total 170 ml 250 ml 290 ml Balance 323 ml -250 ml 430 ml Intake Oral 320 ml IV Total 493 ml 400 ml Output Urine Total 250 ml Drainage Total 170 ml 250 ml 40 ml Result Diagram: 11/02/16 0458 11/03/16 0632 Other Results Laboratory Tests Test 11/01/16 21:20 11/02/16 04:58 11/03/16 06:32 Iron Level 41 MCG/DL Total Iron Binding Capacity 207 MCG/DL Percent Iron Saturation 19.8 % Ferritin 105 NG/ML Carcinoembryonic Antigen 20.1 NG/ML White Blood Count 14.1 TH/MM3 Red Blood Count 4.40 MIL/MM3 Hemoglobin 11.8 GM/DL Hematocrit 36.6 % Mean Corpuscular Volume 83.2 FL Mean Corpuscular Hemoglobin 26.8 PG Mean Corpuscular Hemoglobin Concent 32.3 % Red Cell Distribution Width 16.3 % Platelet Count 425 TH/MM3 Mean Platelet Volume 8.0 FL Neutrophils (%) (Auto) 87.8 % Lymphocytes (%) (Auto) 6.4 % Monocytes (%) (Auto) 5.4 % Eosinophils (%) (Auto) 0.1 % Basophils (%) (Auto) 0.3 % Neutrophils # (Auto) 12.4 TH/MM3 Lymphocytes # (Auto) 0.9 TH/MM3 Monocytes # (Auto) 0.8 TH/MM3 Eosinophils # (Auto) 0.0 TH/MM3 Basophils # (Auto) 0.0 TH/MM3 CBC Comment DIFF FINAL Differential Comment Blood Urea Nitrogen 3 MG/DL 5 MG/DL Creatinine 0.75 MG/DL 0.73 MG/DL Random Glucose 120 MG/DL 127 MG/DL Calcium Level 7.8 MG/DL 7.5 MG/DL Magnesium Level 1.7 MG/DL 1.6 MG/DL Sodium Level 137 MEQ/L 138 MEQ/L Potassium Level 3.8 MEQ/L 3.7 MEQ/L Chloride Level 105 MEQ/L 105 MEQ/L Carbon Dioxide Level 25.0 MEQ/L 25.5 MEQ/L Anion Gap 7 MEQ/L 8 MEQ/L Estimat Glomerular Filtration Rate 74 ML/MIN 77 ML/MIN Objective Remarks GENERAL: Awake alert and oriented talkative and cooperative SKIN: Warm and dry. No obvious rashes HEAD: Atraumatic. Normocephalic. EYES: Pupils equal and round. No scleral icterus. No injection or drainage. Extraocular muscles intact ENT: No nasal bleeding or discharge. Mucous membranes pink and moist. Tongue is midline NECK: Trachea midline. No JVD. Supple CARDIOVASCULAR: Regular rate and rhythm. S1 and S2 no S3-S4 no heave no pronator murmur no rubs or gallops RESPIRATORY: No accessory muscle use. Clear to auscultation. Breath sounds equal bilaterally. GASTROINTESTINAL: Abdomen soft, non-tender, nondistended. Hepatic and splenic margins not palpable. Has colostomy in place as well as AN drain MUSCULOSKELETAL: Extremities without clubbing, cyanosis, or edema. No obvious deformities. NEUROLOGICAL: Awake and alert. No obvious cranial nerve deficits. Motor grossly within normal limits. Five out of 5 muscle strength in the arms and legs. Normal speech. PSYCHIATRIC: Appropriate mood and affect; insight and judgment normal. Procedures CAN BROWN M.D. DATE OF SURGERY 10/29/2016 PROCEDURE 1. Exploratory laparotomy 2. Mobilization splenic flexure of the colon 3. Resection of distal transverse and descending colon 4. Saran-Cut liver biopsy x2 from the medial segment of the left lobe of the liver. 5. End colostomy PREOPERATIVE DIAGNOSIS Perforated sigmoid colon mass. POSTOPERATIVE DIAGNOSIS Perforated sigmoid colon mass with likely neoplasm with metastatic disease to the liver. ANESTHESIA General endotracheal SURGEON Can Brown MD ESTIMATED BLOOD LOSS 250 mL FLUIDS 2500 mL crystalloid, 750 mL urine COMPLICATIONS None DRAINS AN x1 SPECIMEN 1. Distal transverse and descending colon to pathology. 2. Saran-Cut liver biopsies x2 to pathology. Medications and IVs Current Medications Sodium Chloride (NS Flush) 2 ml UNSCH PRN IV FLUSH FLUSH AFTER USING IV ACCESS ; Start 10/29/16 at 11:45; Stop 10/29/16 at 22:27; Status DC Ciprofloxacin/ Dextrose 200 ml @ 200 mls/hr ONCE ONCE IV Last administered on 10/29/16 14:36; Start 10/29/16 at 13:00; Stop 10/29/16 at 13:59; Status DC Metronidazole 100 ml @ 100 mls/hr ONCE ONCE IV Last administered on 13:05; Start 10/29/16 at 13:00; Stop 10/29/16 at 13:59; Status DC Sodium Chloride 1,000 ml @ 999 mls/hr Q1H1M IV Last administered on 10/29/16 13:06; Start 10/29/16 at 13:00; Stop 10/29/16 at 14:00; Status DC Lidocaine HCl (Lidocaine Pf 4% Neb) 2 ml ONCE ONCE NEB Last administered on 13:11; Start 10/29/16 at 13:00; Stop 10/29/16 at 13:02; Status DC Sodium Chloride 1,000 ml @ 75 mls/hr [id number] IV ; Start 10/29/16 at 13:39; Stop 10/29/16 at 22:26; Status DC Sodium Chloride (NS Flush) 2 ml UNSCH PRN IV FLUSH FLUSH AFTER USING IV ACCESS ; Start 10/29/16 at 13:45; Stop 10/29/16 at 22:27; Status DC Sodium Chloride (NS Flush) 2 ml BID IV FLUSH ; Start 10/29/16 at 21:00; Stop 02/02 at 22:27; Status DC Ondansetron HCl (Zofran Inj) 4 mg Q6H PRN IVP NAUSEA OR VOMITING Last administered on 10/29/16 15:11; Start 10/29/16 at 13:45; Stop 10/29/16 at 22:27 ; Status DC Naloxone HCl (Narcan Inj) 0.4 mg UNSCH PRN IV SEE LABEL COMMENTS; Start at 13:45; Stop 10/29/16 at 22:27; Status DC Senna/Docusate Sodium (Amberly-Colace) 1 tab BID PO Last administered on 08:32; Start 10/29/16 at 21:00 Magnesium Hydroxide (Milk Of Magnesia Liq) 30 ml Q12H PRN PO MILD - MODERATE CONSTIPATION; Start 10/29/16 at 13:45 Sennosides (Senokot) 17.2 mg Q12H PRN PO MODERATE - SEVERE CONSTIPATION; Start 10/29/16 at 13:45 Bisacodyl (Dulcolax Supp) 10 mg DAILY PRN RECTAL SEVERE CONSITIPATION; Start at 13:45 Lactulose (Lactulose Liq) 30 ml DAILY PRN PO SEVERE CONSITIPATION; Start at 13:45 Lidocaine HCl (Xylocaine 2% Jelly) 5 ml STK-MED ONCE .ROUTE ; Start 10/29/16 at 16:52; Stop 10/29/16 at 16:53; Status DC Famotidine (Pepcid Inj) 20 mg STK-MED ONCE .ROUTE ; Start 10/29/16 at 17:06; Stop 10/29/16 at 17:07; Status DC Sugammadex Sodium (Bridion Inj) 200 mg STK-MED ONCE IV PUSH ; Start 10/29/16 at 19:29; Stop 10/29/16 at 19:30; Status DC Metronidazole 100 ml @ 100 mls/hr ONCE ONCE IV Last administered on 19:07; Start 10/29/16 at 19:30; Stop 10/29/16 at 20:29; Status DC Miscellaneous Information ALL NURSING DEPARTME... UNSCH PRN .XX SEE LABEL COMMENTS; Start 10/29/16 at 19:55; Stop 10/30/16 at 19:54; Status DC Morphine Sulfate (Morphine Inj) 4 mg STK-MED ONCE .ROUTE Last administered on 20:29; Start 10/29/16 at 20:29; Stop 10/29/16 at 20:30; Status DC Lactated Ringer's 1,000 ml @ 50 mls/hr Q20H IV Last administered on 11/01/16 09:46; Start 10/29/16 at 20:24; Stop 11/02/16 at 09:14; Status DC IV Flush (NS Flush) 2 ml UNSCH PRN IVF FLUSH AFTER USING IV ACCESS; Start 10/29 at 20:30 IV Flush (NS Flush) 2 ml BID IVF Last administered on 11/03/16 08:33; Start at 21:00 Ondansetron HCl (Zofran Inj) 4 mg Q4H PRN IV NAUSEA OR VOMITING; Start at 20:30 Diphenhydramine HCl (Benadryl Inj) 25 mg Q6H PRN IVP ITCHING; Start 10/29/16 at 20:30 Metronidazole 100 ml @ 200 mls/hr Q8H IV Last administered on 11/03/16 12:46 ; Start 10/29/16 at 21:00; Stop 11/05/16 at 20:59 Miscellaneous Information (Post-op Orders (for Pharmacy)) STAT ONCE XX ; Start 10/29/16 at 20:30; Stop 10/29/16 at 21:05; Status DC Miscellaneous Information 1 ONCE ONCE XX ; Start 10/29/16 at 20:30; Stop at 20:58; Status DC Enoxaparin Sodium (Lovenox Inj) 30 mg Q24H SQ Last administered on 11/01/16 21 :17; Start 10/30/16 at 19:00 Naloxone HCl (Narcan Inj) 0.4 mg UNSCH PRN IV RESPIRATORY RATE LESS THAN 10; Start 10/29/16 at 20:30; Stop 10/31/16 at 16:43; Status DC Morphine Sulfate (Morphine 1 Mg/ ml DIRECT SUPPORT PROFESSIONAL) 30 mg UNSCH IV Last administered on 21:41; Start 10/29/16 at 20:30; Stop 10/31/16 at 16:43; Status DC DIRECT SUPPORT PROFESSIONAL Dosage Infused (Pha) 1 Q8HR .XX Last administered on 10/31/16 13:45; Start 10/29/16 at 22:00; Stop 10/31/16 at 16:43; Status DC Ciprofloxacin/ Dextrose 200 ml @ 200 mls/hr Q24H IV Last administered on 22:47; Start 10/29/16 at 22:00; Stop 11/05/16 at 21:59 Morphine Sulfate (Morphine Inj) 4 mg STK-MED ONCE .ROUTE Last administered on 20:40; Start 10/29/16 at 20:40; Stop 10/29/16 at 20:41; Status DC Morphine Sulfate (Morphine Inj) 4 mg STK-MED ONCE .ROUTE ; Start 10/29/16 at 20: 54; Stop 10/29/16 at 20:55; Status DC Hydromorphone HCl (Dilaudid Pf Inj) 1 mg STK-MED ONCE .ROUTE ; Start 10/29/16 at 21:15; Stop 10/29/16 at 21:16; Status DC Sodium Chloride 500 ml @ 999 mls/hr Q31M ONCE IV Last administered on 09:36; Start 10/30/16 at 09:00; Stop 10/30/16 at 09:30; Status DC Sodium Chloride 500 ml @ 500 mls/hr BOLUS ONCE IV Last administered on 10:15; Start 10/31/16 at 10:15; Stop 10/31/16 at 11:14; Status DC Acetaminophen/ Hydrocodone Bitart ([place] 5-325 Mg) 1 tab Q4H PRN PO pain 1-5; Start 10/31/16 at 16:45 Acetaminophen/ Hydrocodone Bitart ([place] 5-325 Mg) 2 tab Q6H PRN PO pain 6-10 ; Start 10/31/16 at 16:45 Furosemide (Lasix) 20 mg ONCE ONCE PO Last administered on 11/02/16 11:08; Start 11/02/16 at 09:15; Stop 11/02/16 at 09:23; Status DC Carvedilol (Coreg) 3.125 mg BID PO Last administered on 11/03/16 08:32; Start 11/02/16 at 21:00 Levothyroxine Sodium (Synthroid) 50 mcg DAILY@0600 PO Last administered on 11/03 04:28; Start 11/03/16 at 06:00 Valsartan (Diovan) 160 mg DAILY PO ; Start 11/03/16 at 09:00 Atorvastatin Calcium (Lipitor) 20 mg DAILY PO Last administered on 11/03/16t 08 :32; Start 11/03/16 at 09:00 Levothyroxine Sodium (Synthroid) 50 mcg ONCE ONCE PO Last administered on 11/02 14:37; Start 11/02/16 at 13:30; Stop 11/02/16 at 14:09; Status DC Urinary Catheter: No Vascular Central Line Catheter: No A/P Problem List: (1) Colon cancer ICD Code: C18.9 - Malignant neoplasm of colon, unspecified (2) Perforation bowel ICD Code: K63.1 - Perforation of intestine (nontraumatic) Status: Acute (3) Colonic mass ICD Code: K63.9 - Disease of intestine, unspecified Status: Acute Assessment and Plan Sigmoid mass w contained perforation noted on outpatient CT scan: CT abdomen and pelvis showed an ill-defined mass in the sigmoid region with contained perforation. Questionable metastatic disease to liver. Mild hydronephrosis. General surgery following. s/pPlacement ureteral stent (Dr. Carvajal), Exp Laparotomy, Mobilization splenic flexure of colon, Resection distal transverse and descending colon, Saran-cut liver biopsy x 2 End colostomy POD 5. pain mgt/rehab/dvt proph/ on cipro/flagyl per GS. WBC trending down. continue to monitor. 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 Oncology evaluated the patient. Per Dr. Dempsey, she has stage IV colon cancer. He recommends pt f/u w him in the office in 2 weeks and she will require chemotherapy. cultures growing mixed Anaerobes. diet advanced to full liquids per sx. Mild hyponatremia: resolved Hx of ischemic cardiomyopathy however EF unknown. SOB w ambulation. She doesn't know her EF. Hold all IV fluids. Agree w dose of lasix. Check ECHO. monitor lower extremity edema. May need another dose of lasix in AM. Pt has no SOB at this time. Breast cancer: Status post left mastectomy. Patient admits that she did not finish her course of chemotherapy as she could not tolerate it. Oncologist is in [facility]. hyperthyroidism: on home medication CAD with bypass surgery: on home medication hyperlipidemia: on home medication DVT prophylaxis: lovenox Discharge Planning diet has been advanced to full liquid by Gen sx. oncology evaluated the patient and she has stage IV colon cancer, f/u w onc team in 2 weeks in clinic Monitor lower ext edema awaiting clearance from sx. Ibrahima Bocanegra DO Nov 03, 2016 13:04
[2016-11-03] MEDS ORDERED: CIPR-9 PO (13:10)
[2016-11-03] MEDS ORDERED: COLA100C PO (13:10)
[2016-11-03] MEDS ORDERED: LACTCHW3 CHEW (13:10)
[2016-11-03] MEDS ORDERED: METR-1 PO (13:10)
[2016-11-03] MEDS ORDERED: HYDR-3516 PO (13:10)
--- NOTE | 2016-11-03 13:13 | HHI.DS ---
Discharge Summary Admission Date Oct 29, 2016 at 13:40 Discharge Date: Nov 03, 2016 Admitting Diagnosis sigmoid mass with perforation (1) Colon cancer ICD Code: C18.9 - Malignant neoplasm of colon, unspecified Diagnosis: Principal (2) Perforation bowel ICD Code: K63.1 - Perforation of intestine (nontraumatic) Diagnosis: Secondary Status: Acute (3) Colonic mass ICD Code: K63.9 - Disease of intestine, unspecified Diagnosis: Principal Status: Acute Procedures CAN BROWN M.D. DATE OF SURGERY 10/29/2016 PROCEDURE 1. Exploratory laparotomy 2. Mobilization splenic flexure of the colon 3. Resection of distal transverse and descending colon 4. Saran-Cut liver biopsy x2 from the medial segment of the left lobe of the liver. 5. End colostomy PREOPERATIVE DIAGNOSIS Perforated sigmoid colon mass. POSTOPERATIVE DIAGNOSIS Perforated sigmoid colon mass with likely neoplasm with metastatic disease to the liver. ANESTHESIA General endotracheal SURGEON Can Brown MD ESTIMATED BLOOD LOSS 250 mL FLUIDS 2500 mL crystalloid, 750 mL urine COMPLICATIONS None DRAINS AN x1 SPECIMEN 1. Distal transverse and descending colon to pathology. 2. Saran-Cut liver biopsies x2 to pathology. Brief History - From Admission Patient is an 80-year-old female with past medical history of breast cancer, CAD status post bypass surgery, hyperlipidemia and hyper thyroidism came from [place] upon the request of the radiologist. She tells me that about 2-4 weeks ago, she was experiencing left lower quadrant pain which she rates about a 3 out of 10 whenever she would move around. She states that the pain was "there all the time". Because of this pain she started taking a liquid diet and apparently that helped with the pain. During that time her primary care doctor retired and she was in the process of getting a new primary care doctor. She did see him and he ordered a CT scan. She went to her appointment today to get the CT scan and radiologist referred her to [facility]. Prior to coming here, patient was prescribed antibiotics. She took them for one day however she had nausea due to the antibiotics and stopped taking her medication. She also admits to diarrhea for a couple of days, nonbloody. She states that her primary care doctor did check for blood in her stools and did not find any. She denies any prior history of colonoscopies. Currently she has no pain. She denies any fevers or chills. Currently she is not nauseous. She states she is scheduled for surgery later today and apparently she was told that she would be going to the intensive care unit for monitoring for a day or so. Patient has no other complaints at this time. CBC/BMP: 11/02/16 0458 11/03/16 0632 Significant Findings Laboratory Tests Test 11/01/16 21:20 11/02/16 04:58 11/03/16 06:32 Iron Level 41 MCG/DL (50-170) Total Iron Binding Capacity 207 MCG/DL (250-450) Percent Iron Saturation 19.8 % (20-50) Carcinoembryonic Antigen 20.1 NG/ML (0.2-5.0) White Blood Count 14.1 TH/MM3 (4.0-11.0) Mean Corpuscular Hemoglobin 26.8 PG (27.0-34.0) Neutrophils (%) (Auto) 87.8 % (16.0-70.0) Lymphocytes (%) (Auto) 6.4 % (9.0-44.0) Neutrophils # (Auto) 12.4 TH/MM3 (1.8-7.7) Lymphocytes # (Auto) 0.9 TH/MM3 (1.0-4.8) Blood Urea Nitrogen 3 MG/DL (7-18) 5 MG/DL (7-18) Random Glucose 120 MG/DL (74-106) 127 MG/DL (74-106) Calcium Level 7.8 MG/DL (8.5-10.1) 7.5 MG/DL (8.5-10.1) Estimat Glomerular Filtration Rate 74 ML/MIN (>89) 77 ML/MIN (>89) PE at Discharge GENERAL: Awake alert and oriented talkative and cooperative SKIN: Warm and dry. No obvious rashes HEAD: Atraumatic. Normocephalic. EYES: Pupils equal and round. No scleral icterus. No injection or drainage. Extraocular muscles intact ENT: No nasal bleeding or discharge. Mucous membranes pink and moist. Tongue is midline NECK: Trachea midline. No JVD. Supple CARDIOVASCULAR: Regular rate and rhythm. S1 and S2 no S3-S4 no heave no pronator murmur no rubs or gallops RESPIRATORY: No accessory muscle use. Clear to auscultation. Breath sounds equal bilaterally. GASTROINTESTINAL: Abdomen soft, non-tender, nondistended. Hepatic and splenic margins not palpable. Has colostomy in place as well as AN drain MUSCULOSKELETAL: Extremities without clubbing, cyanosis, or edema. No obvious deformities. NEUROLOGICAL: Awake and alert. No obvious cranial nerve deficits. Motor grossly within normal limits. Five out of 5 muscle strength in the arms and legs. Normal speech. PSYCHIATRIC: Appropriate mood and affect; insight and judgment normal. Hospital Course Came in the hospital. Had colostomy performed and exploratory surgery. Has AN drains in place. Diagnosis stage IV colon cancer. Can be discharged to home to follow-up with primary care physician as well as with oncology and surgery Pt Condition on Discharge: Good Discharge Disposition: Disch w/ Home Health Serv Discharge Time: > 30 minutes Discharge Instructions DIET: Follow Instructions for: Heart Healthy Diet Speech Therapy-Diet Recommends: Regular Activities you can perform: Shower Only-No Bath Other Activity Instructions: No bathing YET Follow up Referrals: Oncology/Hematology - 2 Weeks with Sakina Dempsey MD PCP Follow-up - 2-3 Days Surgical - 1 Week with Can Brown MD New Medications: Ciprofloxacin (Cipro) 500 Mg Tab 500 MG PO BID for Infection, #14 TAB 0 Refills Docusate Sodium (Colace) 100 Mg Capsule 1 CAP PO TID for Constipation, #90 CAP Lactobacillus Acidophilus (Lactinex) 1 Chew 1 TAB CHEW TID for Nutritional Supplement, #60 TAB 0 Refills Metronidazole (Flagyl) 500 Mg Tab 500 MG PO TID for Infection, #21 TAB 0 Refills Hydrocodone-Acetaminophen (Hydrocodone-Acetaminophen) 5-325 mg Tab 2 TAB PO Q6H PRN for pain 6-10, #30 TAB Continued Medications: Carvedilol (Carvedilol) 3.125 Mg Tab 3.125 MG PO BID, #60 TAB 0 Refills Levothyroxine (Levothyroxine) 50 Mcg Tab 50 MCG PO DAILY for Thyroid, #30 TAB 0 Refills Rosuvastatin (Crestor) 10 Mg Tab 10 MG PO DAILY for Cholesterol Management, #30 TAB 0 Refills Valsartan (Diovan) 160 Mg Tab 160 MG PO DAILY, #30 TAB 0 Refills Ibrahima Bocanegra DO Nov 03, 2016 13:13
== END 2016-11-03 15:36 | disposition home health service (06) | DRG 329 ==
LOC: NEPC 11:14 → NEDA 13:40 → N07A 15:32 → N03B 19:49 → N07B 10-30 18:57
PROVIDERS: ADMIT Hospitalist; ATTEND Hospitalist
PROC: 0D1L0Z4 Bypass Transverse Colon to Cutaneous, Open Approach (ICD-10-PCS; 2016-10-29)
PROC: 0FB03ZX Excision of Liver, Percutaneous Approach, Diagnostic (ICD-10-PCS; 2016-10-29)
PROC: 0T778DZ Dilation of Left Ureter with Intraluminal Device, Via Natural or Artificial Opening Endoscopic (ICD-10-PCS; 2016-10-29)
PROC: 0DBM0ZZ Excision of Descending Colon, Open Approach (ICD-10-PCS; principal; 2016-10-29 17:07)
PROC: 0DBL0ZZ Excision of Transverse Colon, Open Approach (ICD-10-PCS; 2016-10-29 17:07)
DX: C18.4 Malignant neoplasm of transverse colon (principal); K63.1 Perforation of intestine (nontraumatic); C78.7 Secondary malignant neoplasm of liver and intrahepatic bile duct; C78.6 Secondary malignant neoplasm of retroperitoneum and peritoneum; E87.1 Hypo-osmolality and hyponatremia; N13.30 Unspecified hydronephrosis; Z95.1 Presence of aortocoronary bypass graft; I10 Essential (primary) hypertension; I25.10 Atherosclerotic heart disease of native coronary artery without angina pectoris; I25.5 Ischemic cardiomyopathy; E78.5 Hyperlipidemia, unspecified; E03.9 Hypothyroidism, unspecified; R60.9 Edema, unspecified; I25.2 Old myocardial infarction; Z85.3 Personal history of malignant neoplasm of breast; Z90.12 Acquired absence of left breast and nipple; Z95.810 Presence of automatic (implantable) cardiac defibrillator; Z88.0 Allergy status to penicillin; Z91.040 Latex allergy status; Z92.21 Personal history of antineoplastic chemotherapy
CPT/HCPCS: 43753; 76000; 80048; 80053; 82378; 82728; 83540; 83550; 83605; 83735; 85025; 85610; 85730; 86850; 86900; 86901; 87070; 87185; 87205; 87641; 88305; 88307; 88309; 93005; 94150; 94664; 96365; C1769; C2617; J0131; J0744; J1170; J1650; J2270; J2370; J2405; J3010; J7030; J7040; J7120